=== PATIENT | female | born 1975 | race Caucasian/White ===

== ENCOUNTER 2017-02-09 11:45 | Outpatient (RCR) | payer OTHER | END 2017-02-11 | LOC: M OT 11:45 | PROVIDERS: ATTEND Physician Assistant | DX: Z51.89 Encounter for other specified aftercare (principal); G56.01 Carpal tunnel syndrome, right upper limb ==

== ENCOUNTER 2017-03-02 11:45 | Outpatient (RCR) | payer OTHER | END 2017-03-13 | LOC: M OT 11:45 | PROVIDERS: ATTEND Physician Assistant | DX: Z51.89 Encounter for other specified aftercare (principal); G56.01 Carpal tunnel syndrome, right upper limb ==

== ENCOUNTER → 2017-05-19 | Outpatient (REF) | payer OTHER ==
[~2017-05-19] MED LIST: NAPR500T PO
== END ==
LOC: M SFHCPLAZ 12:47
PROVIDERS: ATTEND Nurse Practitioner Adult Health
DX: J06.0 Acute laryngopharyngitis (principal)

== ENCOUNTER 2017-06-23 06:04 | Emergency (ER) | payer OTHER ==
[~2017-06-23] VITALS: Ht 154.9 cm; Wt 81.4 kg
[2017-06-23] MEDS ORDERED: KETOROLAC 30 MG/ML VIAL (J1885) IV ONE (06:30)
[2017-06-23 07:16] LABS: BASO % 0.5 % (0.0-1.0); EOS # 0.2 K/mm3 (0.0-0.50); EOS % 1.8 % (0.0-3.0); LARGE UNSTAINED CELL # 0.1 K/mm3 (0.0-0.4); LARGE UNSTAINED CELL % 1.2 % (0.0-4.0); LYMPH # 1.4 K/mm3 (1.5-4.5); LYMPH % 12.5 % (24.0-44.0); MEAN CORPUSCULAR HEMOGLOBIN 29.2 pg (27.0-33.0); MEAN CORPUSCULAR VOLUME 88.4 fl (80.0-96.0); MONO # 0.5 K/mm3 (0.0-0.8); MONO % 5.1 % (0.0-5.0); NEUTROPHILS # 7.9 K/mm3 (1.8-7.7); NEUTROPHILS % 78.9 % (36.0-66.0); PLATELET COUNT, AUTOMATED 259 k/mm3 (150-450); RED CELL DISTRIBUTION WIDTH 13.6 % (11.5-14.5)
[2017-06-23 07:34] LABS: ALBUMIN 3.6 GM/DL (3.2-5.2); ALBUMIN/GLOBULIN RATIO 1.13 (1.00-1.93); ALKALINE PHOSPHATASE 88 U/L (45-117); ALT/SGPT 18 U/L (12-78); AMYLASE 27 U/L (25-115); ANION GAP 10 MEQ/L (8-16); AST/SGOT 10 U/L (15-37); BILIRUBIN,TOTAL 0.8 MG/DL (0.2-1.0); BLOOD UREA NITROGEN 9 MG/DL (7-18); CALCIUM LEVEL 8.9 MG/DL (8.5-10.1); CARBON DIOXIDE LEVEL 23 MEQ/L (21-32); CHLORIDE LEVEL 107 MEQ/L (98-107); CREATININE FOR GFR 0.78 MG/DL (0.55-1.02); GLOMERULAR FILTRATION RATE > 60.0 (>58); GLUCOSE, FASTING 104 MG/DL (70-105); POTASSIUM SERUM 4.1 MEQ/L (3.5-5.1); SODIUM LEVEL 140 MEQ/L (136-145); TOTAL PROTEIN 6.8 GM/DL (6.4-8.2)
[2017-06-23] MEDS ORDERED: NAPR500T PO (08:20)
[2017-06-23 08:27] VITALS: BP 117/72
--- NOTE | 2017-06-23 09:44 | REP ---
PA and lateral chest: Comparison is 09/13/2009. The lung granados are clear. The cardiac size is normal The luke, mediastinum, and bony thorax are unremarkable. Impression: Negative PA and lateral chest. There is no interval change of the Signed by Kvng Ames MD 06/23/2017 08:11 A
--- NOTE | 2017-06-23 09:44 | REP ---
Thoracic spine two views: Comparison is a PA and lateral chest of 09/13/2009. Vertebral body heights, interspacing alignment are normal and unchanged. Mineralization is normal. There is scoliosis convex left in the upper thoracic spine and right in the mid thoracic spine. This is unchanged. The pedicles are unremarkable. Surgical clips are incidentally noted in the abdominal right upper quadrant. Impression: Scoliosis, otherwise negative thoracic spine. Signed by Kvng Ames MD 06/23/2017 08:12 A
== END 2017-06-23 08:51 | disposition home or self-care (01) ==
LOC: M ED 06:04
DX: R10.13 Epigastric pain (principal); M54.9 Dorsalgia, unspecified
CPT/HCPCS: 36415; 71020; 72072; 80053; 81001; 82150; 83690; 85025; 96374; 99284; J1885

== ENCOUNTER → 2017-10-03 | Outpatient (CLI) | payer OTHER ==
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
== END ==
LOC: M PAIN 14:00
PROVIDERS: ATTEND Anesthesiology
DX: G89.21 Chronic pain due to trauma (principal); M25.562 Pain in left knee; M94.20 Chondromalacia, unspecified site; Z79.1 Long term (current) use of non-steroidal anti-inflammatories (NSAID); Z79.899 Other long term (current) drug therapy

== ENCOUNTER → 2017-11-17 | Outpatient (CLI) | payer OTHER | LOC: M PAIN 15:00 | DX: M25.562 Pain in left knee (principal); G89.29 Other chronic pain; M79.2 Neuralgia and neuritis, unspecified | CPT/HCPCS: G0463 ==

== ENCOUNTER → 2017-11-25 | Outpatient (CLI) | payer OTHER | LOC: M RAD 10:53 | DX: Z12.31 Encounter for screening mammogram for malignant neoplasm of breast (principal) | CPT/HCPCS: 77067 ==

== ENCOUNTER → 2018-01-14 | Outpatient (REF) | payer OTHER ==
[2018-01-14 16:26] LABS: APPEARANCE, URINE HAZY (CLEAR); BACTERIA, URINE AUTO NEGATIVE (NEGATIVE); BILIRUBIN, URINE AUTO NEGATIVE (NEGATIVE); BLOOD, URINE BLOOD 1+ (NEGATIVE); COLOR, URINE YELLOW (YELLOW); GLUCOSE, URINE (UA) AUTO NEGATIVE (NEGATIVE); KETONE, URINE AUTO NEGATIVE (NEGATIVE); LEUKOCYTE ESTERASE, URINE AUTO NEGATIVE (NEGATIVE); NITRITE, URINE AUTO NEGATIVE (NEGATIVE); PROTEIN, URINE AUTO NEGATIVE (NEGATIVE); RBC, URINE AUTO 4 /HPF (0-3); SPECIFIC GRAVITY URINE AUTO 1.017 (1.002-1.035); SQUAMOUS EPITHELIAL CELL UR AU 2 /HPF (0-6); UROBILINOGEN, URINE AUTO 0.2 mg/dL (0.0-2.0); WBC, URINE AUTO 2 /HPF (0-3)
== END ==
LOC: M LAB REF 10:47
DX: N39.0 Urinary tract infection, site not specified (principal)
CPT/HCPCS: 81001

== ENCOUNTER → 2018-01-17 | Outpatient (CLI) | payer OTHER | LOC: M PAIN 13:45 | DX: M25.562 Pain in left knee (principal); G89.29 Other chronic pain; M79.2 Neuralgia and neuritis, unspecified | CPT/HCPCS: G0463 ==

== ENCOUNTER 2018-03-31 23:15 | Emergency (ER) | payer OTHER ==
[2018-04-01] MEDS: EXPOSURE KIT-ADULT 7 DAY SUPPLY PO (04:45)
[2018-04-01 04:49] LABS: BASO # 0.1 10^3/uL (0.0-0.2); BASO % 0.7 % (0.0-1.0); EOS # 0.1 10^3/uL (0.0-0.50); EOS % 1.3 % (0.0-3.0); HEMATOCRIT 37.2 % (36.0-47.0); HEMOGLOBIN 12.2 g/dl (12.0-15.5); IMMATURE GRANULOCYTE % 0.2 % (0-3.0); LYMPH % 34.3 % (24.0-44.0); MEAN CORPUSCULAR HEMOGLOBIN 29.1 pg (27.0-33.0); MEAN CORPUSCULAR HGB CONC 32.8 g/dl (32.0-36.5); MEAN CORPUSCULAR VOLUME 88.8 fl (80.0-96.0); MONO # 0.6 10^3/uL (0.0-0.8); MONO % 6.6 % (0.0-5.0); NEUTROPHILS % 56.9 % (36.0-66.0); PLATELET COUNT, AUTOMATED 241 10^3/uL (150-450); RED BLOOD COUNT 4.19 10^6/uL (4.00-5.40); RED CELL DISTRIBUTION WIDTH 13.2 % (11.5-14.5); WHITE BLOOD COUNT 8.8 10^3/uL (4.0-10.0)
[2018-04-01] MEDS: ADACEL/BOOSTRIX VACCINE (DIPHTH/PERTUSS/ACELL/TETANUS)0.5ML SYR (90715) IM (04:53)
[2018-04-01] MEDS: cefTRIAXone SOD 250 MG VIAL (J0696) IM (05:15)
[2018-04-01] MEDS: AZITHROMYCIN 250 MG TAB PO (05:19)
[2018-04-01 05:21] LABS: CONTROL LINE HCG INT CTR LINE PRESENT; HCG, SERUM QUALITATIVE NEGATIVE (NEGATIVE)
[2018-04-01] MEDS: [UNRECOGNIZED DRUG - OTHER] IM (05:27)
[2018-04-01 05:30] LABS: ALBUMIN 3.4 GM/DL (3.2-5.2); ALBUMIN/GLOBULIN RATIO 1.17 (1.00-1.93); ALKALINE PHOSPHATASE 74 U/L (45-117); ALT/SGPT 20 U/L (12-78); ANION GAP 5 MEQ/L (8-16); AST/SGOT 13 U/L (7-37); BILIRUBIN,TOTAL 0.5 MG/DL (0.2-1.0); BLOOD UREA NITROGEN 11 MG/DL (7-18); CALCIUM LEVEL 8.4 MG/DL (8.5-10.1); CARBON DIOXIDE LEVEL 28 MEQ/L (21-32); CHLORIDE LEVEL 110 MEQ/L (98-107); CREATININE FOR GFR 0.76 MG/DL (0.55-1.30); GLOMERULAR FILTRATION RATE > 60.0 (>58); GLUCOSE, FASTING 103 MG/DL (70-100); POTASSIUM SERUM 3.6 MEQ/L (3.5-5.1); SODIUM LEVEL 143 MEQ/L (136-145); TOTAL PROTEIN 6.3 GM/DL (6.4-8.2)
[2018-04-01 05:48] LABS: HIVEXPOSED0 NEGATIVE (NEGATIVE)
[2018-04-01 05:49] LABS: CONTROL LINE INT CTR LINE PRESENT; HIV EXPOSED PT 1 NEGATIVE (NEGATIVE)
[2018-04-03 09:43] LABS: HEPATITIS B SURFACE ANTIBODY NEGATIVE (POSITIVE)
[2018-04-03 09:55] LABS: HEPATITIS B SURFACE ANTIGEN NEGATIVE (NEGATIVE)
[2018-04-03 10:22] LABS: HEPATITIS C VIRUS ABY INDEX < 0.0 INDEX (<0.8)
== END 2018-04-01 05:31 | disposition home or self-care (01) ==
LOC: M ED 04-01 05:31
DX: S61.002A Unspecified open wound of left thumb without damage to nail, initial encounter (principal); Z57.8 Occupational exposure to other risk factors; X58.XXXA Exposure to other specified factors, initial encounter; Y92.9 Unspecified place or not applicable; Y93.89 Activity, other specified; Y99.0 Civilian activity done for income or pay
CPT/HCPCS: 90715

== ENCOUNTER → 2018-04-13 | Outpatient (CLI) | payer OTHER | LOC: M PAIN 10:00 | DX: M25.562 Pain in left knee (principal); G89.29 Other chronic pain; M79.2 Neuralgia and neuritis, unspecified; Z79.899 Other long term (current) drug therapy | CPT/HCPCS: G0463 ==

== ENCOUNTER 2018-05-11 11:14 | Outpatient (RCR) | payer OTHER | END 2018-05-13 | LOC: M PT 11:14 | DX: Z51.89 Encounter for other specified aftercare (principal); M25.562 Pain in left knee; G89.29 Other chronic pain ==

== ENCOUNTER → 2018-08-07 | Outpatient (CLI) | payer OTHER ==
[2018-08-07 14:34] LABS: HEPATITIS B SURFACE ANTIBODY NEGATIVE (POSITIVE); HEPATITIS B SURFACE ANTIGEN NEGATIVE (NEGATIVE); HIV 1&2 SCREEN CENTAUR NEGATIVE (NEGATIVE)
[2018-08-07 14:34] LABS: HEPATITIS C VIRUS ABY INDEX 0.1 INDEX (<0.8)
== END ==
LOC: M RAD 11:30
DX: M70.72 Other bursitis of hip, left hip (principal)
CPT/HCPCS: 73502

== ENCOUNTER → 2018-08-07 | Outpatient (CLI) | payer OTHER | LOC: M LAB 11:40 | DX: Z11.59 Encounter for screening for other viral diseases (principal); W46.1XXA Contact with contaminated hypodermic needle, initial encounter ==

== ENCOUNTER 2018-11-20 22:59 | Emergency (ER) | payer OTHER ==
[~2018-11-20] VITALS: Ht 154.9 cm; Wt 63.6 kg
[~2018-11-20 22:59] MED LIST changes: +NAPR-50 PO; -NAPR500T PO
[2018-11-21] MEDS ORDERED: KETOROLAC TROMETHAMINE 10 MG TAB PO ONE
[2018-11-21] MEDS ORDERED: MOBI4TAB PO (00:02)
[2018-11-21 00:18] VITALS: BP 121/73
--- NOTE | 2018-11-21 02:19 | REP ---
Clinical: Trauma. Crush injury Technique: AP, lateral, bilateral oblique views left hand . Findings: The osseous structures and joint spaces are intact and normal. There is no evidence for acute fracture or dislocation. Surrounding soft tissues are unremarkable. No subcutaneous emphysema or radiodense foreign body. Impression: No obvious acute fracture or dislocation. Electronically Signed by Rolf Cleveland MD 11/21/2018 02:11 A
== END 2018-11-21 00:17 | disposition home or self-care (01) ==
LOC: M ED 22:59
DX: S67.22XA Crushing injury of left hand, initial encounter (principal); W23.1XXA Caught, crushed, jammed, or pinched between stationary objects, initial encounter; Y92.009 Unspecified place in unspecified non-institutional (private) residence as the place of occurrence of the external cause

== ENCOUNTER → 2018-12-05 | Outpatient (CLI) | payer OTHER ==
[~2018-12-05] MED LIST changes: +MOBI4TAB PO
--- NOTE | 2018-12-05 14:48 | REPMRS ---
Patient History The patient states she had a clinical breast exam in November 2018. No known family history of cancer. Digital Mammo Screening Bilat: December 05, 2018 - Exam #: [id number] Bilateral CC and MLO view(s) were taken. Technologist: Tiffanie Heath, Technologist Prior study comparison: November 25, 2017, bilateral digital mammo screening bilat performed at [facility]. November 24, 2015, bilateral digital mammo screening bilat performed at [facility]. FINDINGS: There are scattered fibroglandular densities. There has been no change in the appearance of the mammogram from the prior studies. There is a mild amount of scattered fibroglandular density which is fairly symmetric. There is no interval development of dominant mass, architectural distortion, or clustered microcalcification suggestive of malignancy. 3-D tomosynthesis shows no additional findings. Assessment: BI-RADS/ACR category 1 mammogram. Negative Mammogram. Recommendation Routine screening mammogram of both breasts in 1 year (for women over age 40). This patient's Lifetime Breast Cancer RIsk is estimated at 9.5 %. This mammogram was interpreted with the aid of an FDA-approved computer-aided dectection system. Electronically Signed By: Myron Saravia MD 12/05/18 [id number]
== END ==
LOC: M RAD 10:33
PROVIDERS: ATTEND Nurse Practitioner Family
DX: Z12.31 Encounter for screening mammogram for malignant neoplasm of breast (principal)

== ENCOUNTER 2019-02-02 12:14 | Emergency (ER) | payer OTHER ==
[~2019-02-02] VITALS: Ht 154.9 cm; Wt 72.7 kg
[2019-02-02] MEDS ORDERED: ONDANSETRON 4MG/2ML VIAL (J2405) IV ONE (13:15)
[2019-02-02] MEDS ORDERED: NS 1,000 ML IV ONE (13:15)
[2019-02-02 13:45] LABS: BASO # 0.1 10^3/uL (0.0-0.2); BASO % 1.2 % (0.0-1.0); EOS % 0.1 % (0.0-3.0); HEMATOCRIT 41.7 % (36.0-47.0); HEMOGLOBIN 14.1 g/dl (12.0-15.5); LYMPH # 1.2 10^3/uL (1.5-4.5); LYMPH % 15.5 % (24.0-44.0); MEAN CORPUSCULAR HEMOGLOBIN 30.7 pg (27.0-33.0); MEAN CORPUSCULAR HGB CONC 33.8 g/dl (32.0-36.5); MEAN CORPUSCULAR VOLUME 90.7 fl (80.0-96.0); MONO # 0.4 10^3/uL (0.0-0.8); MONO % 4.8 % (0.0-5.0); NEUTROPHILS % 77.8 % (36.0-66.0); PLATELET COUNT, AUTOMATED 281 10^3/uL (150-450); WHITE BLOOD COUNT 7.8 10^3/uL (4.0-10.0)
[2019-02-02 14:22] LABS: ALT/SGPT 30 U/L (12-78); AMYLASE 44 U/L (25-115); BILIRUBIN,DIRECT 0.2 MG/DL (0.0-0.2); BILIRUBIN,TOTAL 0.9 MG/DL (0.2-1.0); BLOOD UREA NITROGEN 13 MG/DL (7-18); CALCIUM LEVEL 9.2 MG/DL (8.5-10.1); CARBON DIOXIDE LEVEL 26 MEQ/L (21-32); CHLORIDE LEVEL 105 MEQ/L (98-107); CREATININE FOR GFR 0.68 MG/DL (0.55-1.30); GLOMERULAR FILTRATION RATE > 60.0 (>58); GLUCOSE, FASTING 94 MG/DL (70-100); LIPASE 83 U/L (73-393); POTASSIUM SERUM 4.5 MEQ/L (3.5-5.1); SODIUM LEVEL 141 MEQ/L (136-145); TOTAL PROTEIN 7.4 GM/DL (6.4-8.2)
[2019-02-02 14:35] VITALS: BP 137/72
== END 2019-02-02 14:52 | disposition home or self-care (01) ==
LOC: M ED 12:14
DX: R11.2 Nausea with vomiting, unspecified (principal); Z79.899 Other long term (current) drug therapy
CPT/HCPCS: 80048; 80076; 81001; 81025; 82150; 83690; 85025; 96361; 96374; 99284; J2405

== ENCOUNTER 2019-02-06 08:28 | Emergency (ER) | payer OTHER ==
[~2019-02-06] VITALS: Ht 154.9 cm; Wt 68.7 kg
[~2019-02-06 08:28] MED LIST changes: -NAPR-50 PO; +NAPR-837 PO
[2019-02-06] MEDS ORDERED: gabapentin (08:40)
[2019-02-06] MEDS ORDERED: TIZA2TA (08:41)
--- NOTE | 2019-02-06 09:28 | REP ---
LEFT SHOULDER, THREE VIEWS: There is no evidence of an acute fracture, dislocation or intrinsic bone disease. IMPRESSION: No fracture or dislocation. Electronically Signed by Kvng Olivas MD 02/07/2019 10:02 A
[2019-02-06] MEDS ORDERED: KETOROLAC 60 MG/2 ML VIAL (J1885) IM ONE (10:15)
[2019-02-06] MEDS ORDERED: MOBI15TA PO (11:20)
[2019-02-06] MEDS ORDERED: LIDO4CRE2 EX (11:20)
[2019-02-06] MEDS ORDERED: ROBA500T PO (11:20)
[2019-02-06 11:27] VITALS: BP 141/91
--- NOTE | 2019-02-06 11:30 | REP ---
CERVICAL SPINE SERIES: Seven views. HISTORY: Left neck pain and numbness in the arm. FINDINGS: There is reversal of the normal cervical lordosis. Lateral views done in flexion and extension and neutral position show no subluxation or instability. Vertebral body heights are preserved. There is degenerative disc narrowing at C5-6 and to a lesser extent C6-7 indicating degenerative disc disease. There is sclerosis and osteophyte formation associated with the 5-6 changes. AP view shows a mild dextroconvex curve in the cervical spine. Oblique images show right-sided uncovertebral spurring at C5-6. Minimal spurring is noted on the left at C5-6. IMPRESSION: Degenerative disc disease most pronounced at C5-6 where there is mild bilateral uncovertebral spurring, right greater than left. Electronically Signed by Иван Saravia MD 02/06/2019 11:33 A
== END 2019-02-06 11:29 | disposition home or self-care (01) ==
LOC: M ED 08:28
DX: M50.322 Other cervical disc degeneration at C5-C6 level (principal); M62.838 Other muscle spasm; Z79.899 Other long term (current) drug therapy
CPT/HCPCS: 72052; 73030; 96372; 99283; J1885

== ENCOUNTER → 2019-03-20 | Outpatient (REF) | payer OTHER ==
[~2019-03-20] MED LIST changes: +LIDO4CRE2 EX; +MOBI15TA PO; +ROBA500T PO; +TIZA2TA; +gabapentin
[2019-03-20 12:30] LABS: ALBUMIN 3.9 GM/DL (3.2-5.2); ALT/SGPT 17 U/L (12-78); BLOOD UREA NITROGEN 11 MG/DL (7-18); CALCIUM LEVEL 8.5 MG/DL (8.5-10.1); CARBON DIOXIDE LEVEL 28 MEQ/L (21-32); CHLORIDE LEVEL 107 MEQ/L (98-107); CHOLESTEROL LEVEL 145 MG/DL (<200); CHOLESTEROL RISK RATIO 2.265 (<5); GLOMERULAR FILTRATION RATE > 60.0 (>58); GLUCOSE, FASTING 93 MG/DL (70-100); HDL CHOLESTEROL 64 MG/DL (>40); LDL CHOLESTEROL 68 MG/DL (<100); NON-HDL-C 81 MG/DL; POTASSIUM SERUM 3.9 MEQ/L (3.5-5.1); SODIUM LEVEL 140 MEQ/L (136-145); TOTAL PROTEIN 6.6 GM/DL (6.4-8.2); TRIGLYCERIDES LEVEL 64 MG/DL (<150)
== END ==
LOC: M SFHCPLAZ 09:55
PROVIDERS: ATTEND Nurse Practitioner Adult Health
DX: Z00.00 Encounter for general adult medical examination without abnormal findings (principal)

== ENCOUNTER → 2019-05-04 | Outpatient (CLI) | payer OTHER ==
--- NOTE | 2019-05-04 17:41 | REP ---
Left hand four views: Mineralization and joint spaces are normal. There is no fracture or dislocation. There are no calcifications or foreign bodies. On the lateral view there appears to be soft tissue edema along the dorsal aspect of the MCP articulations. This should be confirmed clinically. Impression: Probable soft tissue edema as described. Otherwise, negative left hand. Electronically Signed by Kvng Ames MD 05/04/2019 05:32 P
== END ==
LOC: M WUC 15:06
PROVIDERS: ATTEND Physician Assistant
DX: M79.642 Pain in left hand (principal)

== ENCOUNTER 2019-06-16 14:44 | Emergency (ER) | payer OTHER, SELFPAY ==
[~2019-06-16] VITALS: Ht 154.9 cm; Wt 68.2 kg
[~2019-06-16 14:44] MED LIST changes: -TIZA2TA; +TIZA2TA PO; -gabapentin; +gabapentin PO
--- NOTE | 2019-06-16 15:28 | REP ---
Clinical: Trauma. Technique: AP, lateral, bilateral oblique views left hand . Findings: The osseous structures and joint spaces are intact and normal. There is no evidence for acute fracture or dislocation. Surrounding soft tissues are unremarkable. No subcutaneous emphysema or radiodense foreign body. Impression: Normal left hand series . No acute fracture or dislocation. Electronically Signed by Rolf Cleveland MD 06/16/2019 03:20 P
[2019-06-16] MEDS ORDERED: LIDOCAINE 2% MDV 20 ML VIAL SC ONE (15:45)
[2019-06-16] MEDS ORDERED: NEOSPORIN OINT 0.9 GM PKT (FLOOR STOCK) As Ordered ONE (16:02)
[2019-06-16] MEDS ORDERED: NEOSPORIN OINT 0.9 GM PKT (FLOOR STOCK) TOP ONE (16:15)
[2019-06-16 16:17] VITALS: BP 121/70
== END 2019-06-16 16:21 | disposition home or self-care (01) ==
LOC: M ED 14:44
DX: S61.412A Laceration without foreign body of left hand, initial encounter (principal); W22.8XXA Striking against or struck by other objects, initial encounter; Y92.89 Other specified places as the place of occurrence of the external cause; Y93.9 Activity, unspecified; Y99.0 Civilian activity done for income or pay; G56.00 Carpal tunnel syndrome, unspecified upper limb; K80.20 Calculus of gallbladder without cholecystitis without obstruction; Z79.899 Other long term (current) drug therapy

== ENCOUNTER 2019-06-20 11:10 | Emergency (ER) | payer OTHER ==
[~2019-06-20] VITALS: Ht 154.9 cm; Wt 71.0 kg
[~2019-06-20 11:10] MED LIST changes: +TIZA2TA; -TIZA2TA PO; +gabapentin; -gabapentin PO
[2019-06-20 12:22] VITALS: BP 129/79
== END 2019-06-20 12:25 | disposition home or self-care (01) ==
LOC: M ED 11:10
DX: Z48.02 Encounter for removal of sutures (principal)

== ENCOUNTER 2019-11-08 08:07 | Emergency (ER) | payer OTHER, SELFPAY ==
[~2019-11-08] VITALS: Ht 154.9 cm; Wt 70.0 kg
[~2019-11-08 08:07] MED LIST changes: -TIZA2TA; +TIZA2TA PO; -gabapentin; +gabapentin PO
[2019-11-08] MEDS ORDERED: NS 1,000 ML IV ONE (09:15)
[2019-11-08] MEDS ORDERED: ONDANSETRON 4MG/2ML VIAL (J2405) IV ONE (09:15)
[2019-11-08] MEDS ORDERED: ONDA4TAB6 PO (12:01)
[2019-11-08 12:13] VITALS: BP 125/67
== END 2019-11-08 12:14 | disposition home or self-care (01) ==
LOC: M ED 08:07
DX: A08.11 Acute gastroenteropathy due to Norwalk agent (principal); E66.9 Obesity, unspecified; F17.200 Nicotine dependence, unspecified, uncomplicated; Z79.899 Other long term (current) drug therapy; Z98.890 Other specified postprocedural states; Z90.89 Acquired absence of other organs
CPT/HCPCS: 80047; 87507; 96374; 99284; J2405

== ENCOUNTER 2020-05-24 12:39 | Emergency (ER) | payer OTHER, SELFPAY ==
[~2020-05-24] VITALS: Ht 154.9 cm; Wt 71.6 kg
[~2020-05-24 12:39] MED LIST changes: +ONDA4TAB6 PO
[2020-05-24] MEDS ORDERED: ACETAMINOPHEN 500 MG TAB PO ONE (13:15)
[2020-05-24 14:37] VITALS: BP 122/78
--- NOTE | 2020-05-25 09:45 | REP ---
RIGHT ANKLE COMPLETE: 05/24/2020. CLINICAL HISTORY: Rolled ankle, swelling and pain. FINDINGS: The mortise joint was symmetric and preserved with no talar dome osteochondral defect or focal lesion. The distal tibia and fibula without fracture or focal lesion. Prominent soft tissue swelling anterolateral aspect of the ankle without visible avulsion or fracture line. Subtalar joints are intact. No calcaneal spurs noted. Talonavicular and calcaneocuboid joint are normal and without focal lesion in the hindfoot. Visualized portions of tarsal bones and metatarsals included are unremarkable. IMPRESSION: 1. Prominent soft tissue swelling anterolateral aspect of the ankle without visible fracture, avulsion, disruption of the mortise joint, or other acute finding. Electronically Signed by Jose Rafael Quiroz MD 05/25/2020 06:34 P
== END 2020-05-24 14:38 | disposition home or self-care (01) ==
LOC: M ED 12:39
DX: S93.401A Sprain of unspecified ligament of right ankle, initial encounter (principal); W18.49XA Other slipping, tripping and stumbling without falling, initial encounter; Y92.9 Unspecified place or not applicable; Y93.9 Activity, unspecified; Y99.9 Unspecified external cause status

== ENCOUNTER → 2020-06-02 | Outpatient (CLI) | payer OTHER ==
--- NOTE | 2020-06-02 14:01 | REPPI ---
Clinical: Pain. Technique: AP, lateral, bilateral oblique views of the right ankle. Findings: Lateral swelling consist with inversion injury. No acute fracture or dislocation. Ankle mortise appears intact. Impression: Soft-tissue swelling. No acute fracture or dislocation. Electronically Signed by Rolf Cleveland MD 06/02/2020 12:02 P
== END ==
LOC: M PLAIMG 11:26
PROVIDERS: ATTEND Family Medicine
DX: M25.571 Pain in right ankle and joints of right foot (principal)

== ENCOUNTER 2021-05-06 11:51 | Emergency (ER) | payer OTHER ==
[~2021-05-06] VITALS: Ht 154.9 cm; Wt 78.2 kg
[2021-05-06 14:10] LABS: BASO # 0.1 10^3/uL (0.0-0.2); BASO % 0.8 % (0.0-1.0); EOS % 0.5 % (0.0-3.0); HEMATOCRIT 43.6 % (36.0-47.0); HEMOGLOBIN 14.4 g/dl (12.0-15.5); LYMPH # 1.5 10^3/uL (1.5-5.0); LYMPH % 17.4 % (24.0-44.0); MEAN CORPUSCULAR HEMOGLOBIN 29.4 pg (27.0-33.0); MEAN CORPUSCULAR VOLUME 89.2 fl (80.0-96.0); MONO # 0.4 10^3/uL (0.0-0.8); MONO % 4.6 % (2.0-8.0); NEUTROPHILS # 6.4 10^3/uL (1.5-8.5); NEUTROPHILS % 76.3 % (36.0-66.0); PLATELET COUNT, AUTOMATED 299 10^3/uL (150-450); RED BLOOD COUNT 4.89 10^6/uL (4.00-5.40); WHITE BLOOD COUNT 8.4 10^3/uL (4.0-10.0)
[2021-05-06 14:35] LABS: ALBUMIN 3.9 GM/DL (3.2-5.2); BILIRUBIN,DIRECT 0.2 MG/DL (0.0-0.2); BILIRUBIN,TOTAL 0.9 MG/DL (0.2-1.0); TOTAL PROTEIN 7.4 GM/DL (6.4-8.2)
--- NOTE | 2021-05-06 15:29 | REP ---
INDICATION: lower abd pain. COMPARISON: None. TECHNIQUE: Single view abdomen and pelvis. FINDINGS: The bowel gas pattern is normal. There is no radiographic evidence of small bowel obstruction. Multiple metallic clips are seen in the right abdomen. Calcific densities on both sides of the pelvis probably represent phleboliths. IMPRESSION: Unremarkable KUB. <Electronically signed by Kvng Olivas > 05/06/21 0499
[2021-05-06] MEDS ORDERED: KETOROLAC 30 MG/ML 1ML VIAL IV ONE (16:20)
[2021-05-06] MEDS ORDERED: ISOVUE-370 76% 100ML VIAL As Ordered ONE (16:45)
--- NOTE | 2021-05-06 17:04 | REP ---
INDICATION: lower abd TTP. COMPARISON: 12/20/2014 and noncontrast enhanced exam TECHNIQUE: Standard helical technique after the intravenous administration of 100 cc Isovue 370. No oral bowel preparatory contrast was administered prior to the exam. FINDINGS: The lung bases are clear and unchanged The liver, spleen, pancreas, adrenal glands, and kidneys are within normal limits. The abdominal aorta and para-aortic regions are within normal limits. There is no mass or adenopathy. There is no free fluid or free air. Surgical clips are seen in the right lower quadrant from previous appendectomy. There is a short segment of wall thickened sigmoid colon with multiple diverticula in the region. There is no free pelvic fluid or air. Bone window technique throughout the examination shows the osseous structures to be stable and intact. IMPRESSION: Mild sigmoid colon diverticulitis. <Electronically signed by Cuco Elliott > 05/06/21 [id number]
[2021-05-06 17:30] VITALS: BP 133/68
[2021-05-06] MEDS ORDERED: CIPR-249 PO (17:40)
[2021-05-06] MEDS ORDERED: FLAG500T PO (17:40)
[2021-05-07] MEDS ORDERED: PROM25TA12 PO (11:28)
== END 2021-05-06 17:52 | disposition home or self-care (01) ==
LOC: M ED 11:51
DX: K57.32 Diverticulitis of large intestine without perforation or abscess without bleeding (principal); Z87.19 Personal history of other diseases of the digestive system; Z87.440 Personal history of urinary (tract) infections; Z90.49 Acquired absence of other specified parts of digestive tract; Z98.890 Other specified postprocedural states
CPT/HCPCS: 74018; 74177; 80047; 80076; 81001; 83690; 84702; 85025; 96374; 99284; J1885; Q9967

== ENCOUNTER 2021-05-07 06:38 | Emergency (ER) | payer OTHER ==
[~2021-05-07] VITALS: Ht 154.9 cm; Wt 77.5 kg
[~2021-05-07 06:38] MED LIST changes: +CIPR-249 PO; +FLAG500T PO
[2021-05-07] MEDS ORDERED: NS 1,000 ML IV ONE (07:30)
[2021-05-07] MEDS ORDERED: ONDANSETRON 4MG/2ML VIAL IV ONE (07:30)
[2021-05-07 08:14] LABS: BASO # 0.1 10^3/uL (0.0-0.2); BASO % 0.6 % (0.0-1.0); EOS % 0.4 % (0.0-3.0); HEMATOCRIT 46.3 % (36.0-47.0); HEMOGLOBIN 15.3 g/dl (12.0-15.5); LYMPH # 0.9 10^3/uL (1.5-5.0); LYMPH % 10.6 % (24.0-44.0); MEAN CORPUSCULAR HEMOGLOBIN 29.2 pg (27.0-33.0); MEAN CORPUSCULAR VOLUME 88.4 fl (80.0-96.0); MONO # 0.3 10^3/uL (0.0-0.8); MONO % 3.8 % (2.0-8.0); NEUTROPHILS % 84.4 % (36.0-66.0); PLATELET COUNT, AUTOMATED 314 10^3/uL (150-450); RED BLOOD COUNT 5.24 10^6/uL (4.00-5.40); WHITE BLOOD COUNT 8.2 10^3/uL (4.0-10.0)
[2021-05-07 08:18] LABS: BLOOD UREA NITROGEN 13 MG/DL (7-18); CALCIUM LEVEL 9.7 MG/DL (8.5-10.1); CARBON DIOXIDE LEVEL 27 MEQ/L (21-32); CHLORIDE LEVEL 104 MEQ/L (98-107); CREATININE FOR GFR 0.86 MG/DL (0.55-1.30); GLOMERULAR FILTRATION RATE > 60.0 (>58); GLUCOSE, FASTING 127 MG/DL (70-100); POTASSIUM SERUM 3.7 MEQ/L (3.5-5.1); SODIUM LEVEL 138 MEQ/L (136-145)
[2021-05-07 10:25] VITALS: BP 143/83
[2021-05-07] MEDS ORDERED: PROM25TA12 PO (11:28)
== END 2021-05-07 11:40 | disposition home or self-care (01) ==
LOC: M ED 06:38
DX: K57.92 Diverticulitis of intestine, part unspecified, without perforation or abscess without bleeding (principal)
CPT/HCPCS: 36415; 80048; 85025; 96361; 96374; 99284; J2405

== ENCOUNTER → 2021-05-11 | Outpatient (REF) | payer OTHER ==
[~2021-05-11] MED LIST changes: +PROM25TA12 PO
[2021-05-11 13:35] LABS: APPEARANCE, URINE HAZY (CLEAR); BACTERIA, URINE AUTO 1+ (NEGATIVE); BILIRUBIN, URINE AUTO NEGATIVE (NEGATIVE); BLOOD, URINE BLOOD 1+ (NEGATIVE); CALCIUM OXALATE CRYSTALS SMALL; COLOR, URINE YELLOW (YELLOW); GLUCOSE, URINE (UA) AUTO NEGATIVE (NEGATIVE); KETONE, URINE AUTO NEGATIVE (NEGATIVE); LEUKOCYTE ESTERASE, URINE AUTO NEGATIVE (NEGATIVE); MUCUS, URINE SMALL (NEGATIVE); NITRITE, URINE AUTO NEGATIVE (NEGATIVE); PROTEIN, URINE AUTO NEGATIVE (NEGATIVE); RBC, URINE AUTO 2 /HPF (0-3); SPECIFIC GRAVITY URINE AUTO 1.029 (1.002-1.035); SQUAMOUS EPITHELIAL CELL UR AU 15 /HPF (0-6); UROBILINOGEN, URINE AUTO 0.2 mg/dL (0.0-2.0); WBC, URINE AUTO 3 /HPF (0-3)
== END ==
LOC: M SFHCPLAZ 13:10
PROVIDERS: ATTEND Physician Assistant
DX: R31.9 Hematuria, unspecified (principal)

== ENCOUNTER → 2021-06-24 | Outpatient (CLI) | payer OTHER ==
--- NOTE | 2021-06-24 15:42 | REP ---
INDICATION: M25.512 ACUTE PAIN OF LEFT SHOULDER. COMPARISON: 02/06/2019 TECHNIQUE: Three views FINDINGS: No fracture, dislocation or bone test abnormality. No interval change. The previous study. IMPRESSION: Negative exam <Electronically signed by Juan Wolf > 06/24/21 153
== END ==
LOC: M WUC 15:17
PROVIDERS: ATTEND Nurse Practitioner Adult Health
DX: M25.512 Pain in left shoulder (principal)

== ENCOUNTER 2021-07-03 05:46 | Emergency (ER) | payer OTHER ==
[~2021-07-03] VITALS: Ht 154.9 cm; Wt 74.3 kg
[2021-07-03] MEDS ORDERED: ONDANSETRON 4MG/2ML VIAL IV ONE (06:55)
[2021-07-03] MEDS ORDERED: NS 1,000 ML IV ONE (06:55)
[2021-07-03] MEDS ORDERED: KETOROLAC 30 MG/ML 1ML VIAL IV ONE (07:30)
[2021-07-03 07:31] LABS: BASO # 0.1 10^3/uL (0.0-0.2); BASO % 0.8 % (0.0-1.0); EOS # 0.1 10^3/uL (0.0-0.5); EOS % 0.8 % (0.0-3.0); HEMATOCRIT 42.5 % (36.0-47.0); HEMOGLOBIN 14.2 g/dl (12.0-15.5); LYMPH # 1.3 10^3/uL (1.5-5.0); LYMPH % 19.7 % (24.0-44.0); MEAN CORPUSCULAR HGB CONC 33.4 g/dl (32.0-36.5); MEAN CORPUSCULAR VOLUME 89.7 fl (80.0-96.0); MONO # 0.5 10^3/uL (0.0-0.8); MONO % 6.9 % (2.0-8.0); NEUTROPHILS # 4.7 10^3/uL (1.5-8.5); NEUTROPHILS % 71.5 % (36.0-66.0); PLATELET COUNT, AUTOMATED 280 10^3/uL (150-450); RED BLOOD COUNT 4.74 10^6/uL (4.00-5.40); WHITE BLOOD COUNT 6.6 10^3/uL (4.0-10.0)
[2021-07-03] MEDS ORDERED: ISOVUE-370 76% 100ML VIAL As Ordered ONE (07:37)
[2021-07-03 07:59] LABS: ALBUMIN 3.7 GM/DL (3.2-5.2); ALT/SGPT 17 U/L (12-78); BILIRUBIN,DIRECT 0.2 MG/DL (0.0-0.2); BILIRUBIN,TOTAL 1.1 MG/DL (0.2-1.0); CK-MB VALUE MASS < 1.0 NG/ML (<3.6); CPK CREATINE PHOSPHOKINASE 61 U/L (26-192); LIPASE 62 U/L (73-393); MB/CK RELATIVE INDEX 1.64 (< OR =4); TOTAL PROTEIN 7.7 GM/DL (6.4-8.2); TROPONIN I < 0.02 NG/ML (< 0.10)
--- NOTE | 2021-07-03 08:36 | REPVR ---
PROCEDURE INFORMATION: Exam: CT Abdomen And Pelvis With Contrast Exam date and time: 07/03/2021 7:30 AM Age: 46 years old Clinical indication: Abdominal pain; Additional info: HX of diverticulitis, worsening lower abd pain l>r TECHNIQUE: Imaging protocol: Computed tomography of the abdomen and pelvis with contrast. Radiation optimization: All CT scans at this facility use at least one of these dose optimization techniques: automated exposure control; mA and/or kV adjustment per patient size (includes targeted exams where dose is matched to clinical indication); or iterative reconstruction. Contrast material: ISOVUE 370; Contrast volume: 100 ml; Contrast route: INTRAVENOUS (IV); COMPARISON: CT ABD/PEL W/IV CONTRAST ONLY 05/06/2021 4:46 PM FINDINGS: Liver: Mild hepatomegaly. Gallbladder and bile ducts: Status post cholecystectomy. Pancreas: Normal. No ductal dilation. Spleen: Normal. No splenomegaly. Adrenal glands: Normal. No mass. Kidneys and ureters: Normal. No hydronephrosis. Stomach and bowel: Diverticulosis of colon. No evidence of acute diverticulitis. Nonspecific bowel wall thickening involving loops of small and large bowel likely reflecting under distension. Appendix: Status post appendectomy. Intraperitoneal space: Unremarkable. No free air. No significant fluid collection. Vasculature: Unremarkable. No abdominal aortic aneurysm. Lymph nodes: Unremarkable. No enlarged lymph nodes. Urinary bladder: Unremarkable as visualized. Reproductive: Involuting possibly hemorrhagic right ovarian corpus luteal cyst. Bones/joints: Mild multilevel degenerative and facet arthropathy. L5 pars interarticularis defect. Soft tissues: Unremarkable. IMPRESSION: Involuting possibly hemorrhagic right ovarian corpus luteal cyst. Diverticulosis of colon. No evidence of acute diverticulitis. Nonspecific bowel wall thickening involving loops of small and large bowel likely reflecting under distension. No hydronephrosis or nephrolithiasis bilaterally. Electronically signed by: Cory Echavarria On 07/03/2021 08:36:22 AM
[2021-07-03 10:26] VITALS: BP 141/78
--- NOTE | 2021-07-03 19:17 | ECGEPIP ---
[facility] - ED Test Date: 2021-07-03 Pat Name: ISAAC THOMPSON Department: Room: - Gender: Female Photographer Lithographic: PEGGY : 1975 Requested By: CÉSAR Fletcher Order Number: [id number] Reading MD: Sarah De Leon Measurements Intervals [place] Rate: 66 P: 0 DC: 164 QRS: 39 QRSD: 82 T: 24 QT: 390 QTc: 408 Interpretive Statements Normal sinus rhythm Nonspecific ST T wave changes No prior ECG for comparison Electronically Signed on 07-03-2021 19:17:49 EDT by Sarah De Leon
== END 2021-07-03 10:28 | disposition home or self-care (01) ==
LOC: M ED 05:46
DX: R10.9 Unspecified abdominal pain (principal); R19.7 Diarrhea, unspecified; B96.20 Unspecified Escherichia coli [E. coli] as the cause of diseases classified elsewhere; J30.2 Other seasonal allergic rhinitis
CPT/HCPCS: 36415; 74177; 80047; 80076; 82550; 82553; 83690; 85025; 87505; 93005; 93041; 96361; 96374; 96375; 99284; J1885; J2405; Q9967

== ENCOUNTER 2021-08-08 08:02 | Emergency (ER) | payer OTHER ==
[~2021-08-08] VITALS: Ht 154.9 cm; Wt 75.9 kg
[2021-08-08] MEDS ORDERED: NS 1,000 ML IV ONE (08:30)
[2021-08-08 09:05] LABS: BASO # 0.1 10^3/uL (0.0-0.2); EOS # 0.1 10^3/uL (0.0-0.5); HEMATOCRIT 43.1 % (36.0-47.0); HEMOGLOBIN 14.4 g/dl (12.0-15.5); LYMPH # 1.5 10^3/uL (1.5-5.0); LYMPH % 18.7 % (24.0-44.0); MEAN CORPUSCULAR HEMOGLOBIN 29.9 pg (27.0-33.0); MEAN CORPUSCULAR HGB CONC 33.4 g/dl (32.0-36.5); MEAN CORPUSCULAR VOLUME 89.6 fl (80.0-96.0); MONO # 0.5 10^3/uL (0.0-0.8); MONO % 5.8 % (2.0-8.0); NEUTROPHILS # 5.8 10^3/uL (1.5-8.5); NEUTROPHILS % 73.1 % (36.0-66.0); PLATELET COUNT, AUTOMATED 296 10^3/uL (150-450); RED BLOOD COUNT 4.81 10^6/uL (4.00-5.40)
[2021-08-08 09:50] LABS: ALBUMIN 3.4 GM/DL (3.2-5.2); ALT/SGPT 30 U/L (12-78); BILIRUBIN,DIRECT 0.1 MG/DL (0.0-0.2); BILIRUBIN,TOTAL 0.9 MG/DL (0.2-1.0); BLOOD UREA NITROGEN 10 MG/DL (7-18); CARBON DIOXIDE LEVEL 23 MEQ/L (21-32); CHLORIDE LEVEL 108 MEQ/L (98-107); CREATININE FOR GFR 0.65 MG/DL (0.55-1.30); GLOMERULAR FILTRATION RATE > 60.0 (>58); GLUCOSE, FASTING 99 MG/DL (70-100); LIPASE 60 U/L (73-393); POTASSIUM SERUM 4.9 MEQ/L (3.5-5.1); SODIUM LEVEL 138 MEQ/L (136-145)
[2021-08-08 09:59] LABS: RSV AMPLIFICATION NEGATIVE (NEGATIVE)
[2021-08-08 12:14] VITALS: BP 125/77
== END 2021-08-08 12:21 | disposition home or self-care (01) ==
LOC: M ED 08:02
DX: R10.9 Unspecified abdominal pain (principal); R11.2 Nausea with vomiting, unspecified; B96.29 Other Escherichia coli [E. coli] as the cause of diseases classified elsewhere

== ENCOUNTER 2021-11-30 11:23 | Emergency (ER) | payer OTHER ==
[~2021-11-30] VITALS: Ht 154.9 cm; Wt 74.1 kg
[2021-11-30] MEDS ORDERED: NS 1,000 ML IV ONE (12:05)
[2021-11-30] MEDS ORDERED: METOCLOPRAMIDE INJ 10MG/2ML VIAL (J2765 PER 1) IV ONE (12:05)
[2021-11-30 12:51] LABS: BASO % 0.5 % (0.0-1.0); HEMATOCRIT 46.2 % (36.0-47.0); HEMOGLOBIN 15.5 g/dl (12.0-15.5); LYMPH # 0.8 10^3/uL (1.5-5.0); LYMPH % 20.6 % (24.0-44.0); MEAN CORPUSCULAR HEMOGLOBIN 29.6 pg (27.0-33.0); MEAN CORPUSCULAR HGB CONC 33.5 g/dl (32.0-36.5); MEAN CORPUSCULAR VOLUME 88.2 fl (80.0-96.0); MONO # 0.5 10^3/uL (0.0-0.8); MONO % 13.5 % (2.0-8.0); NEUTROPHILS # 2.5 10^3/uL (1.5-8.5); NEUTROPHILS % 65.1 % (36.0-66.0); PLATELET COUNT, AUTOMATED 208 10^3/uL (150-450); RED BLOOD COUNT 5.24 10^6/uL (4.00-5.40); WHITE BLOOD COUNT 3.8 10^3/uL (4.0-10.0)
[2021-11-30 13:26] LABS: BLOOD UREA NITROGEN 13 MG/DL (7-18); CALCIUM LEVEL 9.4 MG/DL (8.5-10.1); CARBON DIOXIDE LEVEL 27 MEQ/L (21-32); CHLORIDE LEVEL 104 MEQ/L (98-107); CREATININE FOR GFR 0.95 MG/DL (0.55-1.30); GLOMERULAR FILTRATION RATE > 60.0 (>58); GLUCOSE, FASTING 77 MG/DL (70-100); POTASSIUM SERUM 3.7 MEQ/L (3.5-5.1); SODIUM LEVEL 137 MEQ/L (136-145)
[2021-11-30] MEDS ORDERED: PROM25TA12 PO (13:52)
[2021-11-30 14:28] VITALS: BP 138/78
== END 2021-11-30 14:29 | disposition home or self-care (01) ==
LOC: M ED 11:23
DX: U07.1 COVID-19 (principal); E86.0 Dehydration; R11.2 Nausea with vomiting, unspecified
CPT/HCPCS: 71045; 80048; 81001; 85025; 96361; 96374; 99284; J2765

== ENCOUNTER 2022-06-09 14:19 | Emergency (ER) | payer OTHER ==
[~2022-06-09] VITALS: Ht 154.9 cm; Wt 71.4 kg
[2022-06-09 14:19] VITALS: BP 166/90
[2022-06-09 16:39] LABS: BASO # 0.1 10^3/uL (0.0-0.2); BASO % 0.6 % (0.0-1.0); HEMATOCRIT 38.4 % (36.0-47.0); HEMOGLOBIN 12.9 g/dl (12.0-15.5); LYMPH # 1.5 10^3/uL (1.5-5.0); LYMPH % 16.5 % (24.0-44.0); MEAN CORPUSCULAR HEMOGLOBIN 30.5 pg (27.0-33.0); MEAN CORPUSCULAR HGB CONC 33.6 g/dl (32.0-36.5); MEAN CORPUSCULAR VOLUME 90.8 fl (80.0-96.0); MONO # 0.3 10^3/uL (0.0-0.8); MONO % 2.9 % (2.0-8.0); NEUTROPHILS # 7.4 10^3/uL (1.5-8.5); NEUTROPHILS % 79.8 % (36.0-66.0); PLATELET COUNT, AUTOMATED 286 10^3/uL (150-450); RED BLOOD COUNT 4.23 10^6/uL (4.00-5.40); WHITE BLOOD COUNT 9.3 10^3/uL (4.0-10.0)
[2022-06-09 17:12] LABS: ALT/SGPT 18 U/L (12-78); BILIRUBIN,DIRECT 0.2 MG/DL (0.0-0.2); BILIRUBIN,TOTAL 0.7 MG/DL (0.2-1.0); BLOOD UREA NITROGEN 5 MG/DL (7-18); CALCIUM LEVEL 9.2 MG/DL (8.5-10.1); CARBON DIOXIDE LEVEL 27 MEQ/L (21-32); CHLORIDE LEVEL 110 MEQ/L (98-107); CREATININE FOR GFR 0.74 MG/DL (0.55-1.30); GLOMERULAR FILTRATION RATE > 60.0 (>58); GLUCOSE, FASTING 107 MG/DL (70-100); LIPASE 54 U/L (73-393); POTASSIUM SERUM 3.5 MEQ/L (3.5-5.1); SODIUM LEVEL 144 MEQ/L (136-145); TOTAL PROTEIN 6.9 GM/DL (6.4-8.2)
[2022-06-09] MEDS ORDERED: PANTOPRAZOLE 40MG VIAL IV ONE (17:25)
[2022-06-09] MEDS ORDERED: NS 1,000 ML IV ONE (17:25)
[2022-06-09] MEDS ORDERED: ISOVUE-370 76% 100ML VIAL As Ordered ONE (17:55)
[2022-06-09] MEDS ORDERED: CIPROFLOXACIN 500MG TABLET PO ONE (19:20)
[2022-06-09] MEDS ORDERED: metroNIDAZOLE (FLAGYL) 500MG TABLET PO ONE (19:20)
[2022-06-09] MEDS ORDERED: METR-265 PO (19:22)
[2022-06-09] MEDS ORDERED: CIPR-249 PO (19:22)
[2022-06-09] MEDS ORDERED: ONDA4TAB6 PO (19:26)
[2022-06-10] MEDS ORDERED: POTA1TAB14 PO (13:13)
[2022-06-10] MEDS ORDERED: DICY1CAP8 PO (13:13)
== END 2022-06-09 19:48 | disposition home or self-care (01) ==
LOC: M ED 14:19
DX: K57.32 Diverticulitis of large intestine without perforation or abscess without bleeding (principal); R51.9 Headache, unspecified; Z90.49 Acquired absence of other specified parts of digestive tract
CPT/HCPCS: 74177; 80048; 80076; 83690; 85025; 96361; 96374; 99283; C9113; Q9967

== ENCOUNTER 2022-06-10 08:21 | Emergency (ER) | payer OTHER ==
[~2022-06-10] VITALS: Ht 154.9 cm; Wt 70.2 kg
[~2022-06-10 08:21] MED LIST changes: +METR-265 PO
[2022-06-10 09:12] LABS: BASO # 0.1 10^3/uL (0.0-0.2); BASO % 0.9 % (0.0-1.0); EOS % 0.6 % (0.0-3.0); HEMATOCRIT 37.4 % (36.0-47.0); HEMOGLOBIN 12.7 g/dl (12.0-15.5); LYMPH # 1.4 10^3/uL (1.5-5.0); LYMPH % 21.5 % (24.0-44.0); MEAN CORPUSCULAR HEMOGLOBIN 30.5 pg (27.0-33.0); MEAN CORPUSCULAR VOLUME 89.7 fl (80.0-96.0); MONO # 0.3 10^3/uL (0.0-0.8); MONO % 5.2 % (2.0-8.0); NEUTROPHILS # 4.7 10^3/uL (1.5-8.5); NEUTROPHILS % 71.5 % (36.0-66.0); PLATELET COUNT, AUTOMATED 271 10^3/uL (150-450); RED BLOOD COUNT 4.17 10^6/uL (4.00-5.40); WHITE BLOOD COUNT 6.6 10^3/uL (4.0-10.0)
[2022-06-10 09:39] LABS: ALBUMIN 3.7 GM/DL (3.2-5.2); ALT/SGPT 22 U/L (12-78); BILIRUBIN,DIRECT 0.3 MG/DL (0.0-0.2); BLOOD UREA NITROGEN 4 MG/DL (7-18); CARBON DIOXIDE LEVEL 25 MEQ/L (21-32); CHLORIDE LEVEL 108 MEQ/L (98-107); CREATININE FOR GFR 0.77 MG/DL (0.55-1.30); GLOMERULAR FILTRATION RATE > 60.0 (>58); GLUCOSE, FASTING 117 MG/DL (70-100); LIPASE 70 U/L (73-393); POTASSIUM SERUM 3.1 MEQ/L (3.5-5.1); SODIUM LEVEL 141 MEQ/L (136-145); TOTAL PROTEIN 6.8 GM/DL (6.4-8.2)
[2022-06-10] MEDS ORDERED: ONDANSETRON 4MG ORAL DISINTEGRATING TAB PO ONE (11:15)
[2022-06-10] MEDS ORDERED: POTASSIUM CHLORIDE 10MEQ SR TABLET PO ONE (12:15)
[2022-06-10 12:48] VITALS: BP 143/66
[2022-06-10] MEDS ORDERED: POTA1TAB14 PO (13:13)
[2022-06-10] MEDS ORDERED: DICY1CAP8 PO (13:13)
== END 2022-06-10 13:44 | disposition home or self-care (01) ==
LOC: M ED 08:21
DX: K52.9 Noninfective gastroenteritis and colitis, unspecified (principal); E87.6 Hypokalemia; Z90.49 Acquired absence of other specified parts of digestive tract; Z90.89 Acquired absence of other organs; Z79.899 Other long term (current) drug therapy

== ENCOUNTER → 2022-07-06 | Outpatient (CLI) | payer OTHER ==
[~2022-07-06] MED LIST changes: +DICY1CAP8 PO; +POTA1TAB14 PO
[2022-07-06 17:56] LABS: ALBUMIN 3.8 GM/DL (3.2-5.2); ALT/SGPT 17 U/L (12-78); BILIRUBIN,TOTAL 0.6 MG/DL (0.2-1.0); BLOOD UREA NITROGEN 11 MG/DL (7-18); CALCIUM LEVEL 9.6 MG/DL (8.5-10.1); CARBON DIOXIDE LEVEL 28 MEQ/L (21-32); CHLORIDE LEVEL 104 MEQ/L (98-107); GLOMERULAR FILTRATION RATE > 60.0 (>58); GLUCOSE, FASTING 76 MG/DL (70-100); POTASSIUM SERUM 4.1 MEQ/L (3.5-5.1); SODIUM LEVEL 137 MEQ/L (136-145); THYROID STIMULATING HORMONE 0.609 uIU/ML (0.358-3.740); TOTAL PROTEIN 7.1 GM/DL (6.4-8.2)
[2022-07-06 18:27] LABS: HEMOGLOBIN A1c 5.5 %
== END ==
LOC: M PLALAB 15:21
PROVIDERS: ATTEND Nurse Practitioner Adult Health
DX: Z13.1 Encounter for screening for diabetes mellitus (principal)

== ENCOUNTER 2022-09-06 03:50 | Emergency (ER) | payer OTHER ==
[~2022-09-06] VITALS: Ht 154.9 cm; Wt 68.2 kg
[2022-09-06 08:15] VITALS: BP 149/70
== END 2022-09-06 08:50 | disposition left against medical advice (07) ==
LOC: M ED 06:50
DX: Z53.21 Procedure and treatment not carried out due to patient leaving prior to being seen by health care provider (principal)

== ENCOUNTER 2022-12-23 04:39 | Emergency (ER) | payer OTHER ==
[~2022-12-23] VITALS: Ht 154.9 cm; Wt 68.1 kg
[2022-12-23 05:55] LABS: BASO # 0.1 10^3/uL (0.0-0.2); BASO % 0.7 % (0.0-1.0); EOS % 0.4 % (0.0-3.0); HEMATOCRIT 45.5 % (36.0-47.0); HEMOGLOBIN 15.3 g/dl (12.0-15.5); LYMPH # 1.5 10^3/uL (1.5-5.0); LYMPH % 20.3 % (24.0-44.0); MEAN CORPUSCULAR HEMOGLOBIN 29.9 pg (27.0-33.0); MEAN CORPUSCULAR HGB CONC 33.6 g/dl (32.0-36.5); MEAN CORPUSCULAR VOLUME 88.9 fl (80.0-96.0); MONO # 0.4 10^3/uL (0.0-0.8); MONO % 5.8 % (2.0-8.0); NEUTROPHILS # 5.5 10^3/uL (1.5-8.5); NEUTROPHILS % 72.5 % (36.0-66.0); PLATELET COUNT, AUTOMATED 308 10^3/uL (150-450); RED BLOOD COUNT 5.12 10^6/uL (4.00-5.40); WHITE BLOOD COUNT 7.6 10^3/uL (4.0-10.0)
[2022-12-23 06:08] LABS: LIPASE 24 U/L (12-53)
[2022-12-23 06:10] LABS: AMYLASE 58 U/L (30-118)
[2022-12-23 06:14] LABS: ALBUMIN 4.4 G/DL (3.2-5.2); ALKALINE PHOSPHATASE 113 U/L (46-116); ALT/SGPT 18 U/L (7.0-40); AST/SGOT 17 U/L (<34); BILIRUBIN,DIRECT 0.3 MG/DL (<0.4); BILIRUBIN,TOTAL 1.1 MG/DL (0.3-1.2); BLOOD UREA NITROGEN 10 MG/DL (9-23); CARBON DIOXIDE LEVEL 24 MMOL/L (20-31); CHLORIDE LEVEL 103 MMOL/L (98-107); CREATININE FOR GFR 0.72 MG/DL (0.55-1.30); GLOMERULAR FILTRATION RATE > 60.0 (>58); GLUCOSE, FASTING 128 MG/DL (60-100); HCG, SERUM QUANTITATIVE < 2.6 MIU/ML (<4.2); POTASSIUM SERUM 3.4 MMOL/L (3.5-5.1); SODIUM LEVEL 139 MMOL/L (136-145); TOTAL PROTEIN 8.1 G/DL (5.7-8.2)
[2022-12-23 06:17] LABS: INR 0.89; PROTHROMBIN TIME 12.2 SECONDS (12.5-14.5)
[2022-12-23] MEDS ORDERED: ONDANSETRON 4MG 2ML VIAL IV ONE (08:00)
[2022-12-23] MEDS ORDERED: MORPHINE 4 MG/ML 1ML VIAL IV ONE (08:00)
[2022-12-23] MEDS ORDERED: NS 1,000 ML IV ONE (08:00)
[2022-12-23] MEDS ORDERED: ISOVUE-370 76% 100ML VIAL As Ordered ONE (08:08)
[2022-12-23] MEDS ORDERED: ONDA4TAB6 PO (09:13)
[2022-12-23 09:23] VITALS: BP 138/82
== END 2022-12-23 09:39 | disposition home or self-care (01) ==
LOC: M ED 04:39
DX: R10.9 Unspecified abdominal pain (principal); R11.0 Nausea; Z90.89 Acquired absence of other organs; F17.200 Nicotine dependence, unspecified, uncomplicated; Z90.49 Acquired absence of other specified parts of digestive tract
CPT/HCPCS: 74177; 80048; 80076; 81000; 81015; 82150; 83690; 84702; 85025; 85610; 96374; 96375; 99283; J2270; J2405

== ENCOUNTER 2023-04-14 06:01 | Emergency (ER) | payer OTHER ==
[~2023-04-14] VITALS: Ht 154.9 cm; Wt 68.4 kg
[~2023-04-14 06:01] MED LIST changes: +POTA-298 PO; -POTA1TAB14 PO
[2023-04-14] MEDS ORDERED: NS 1,000 ML IV ONE (07:05)
[2023-04-14] MEDS ORDERED: ONDANSETRON 4MG 2ML VIAL IV ONE (07:05)
[2023-04-14] MEDS ORDERED: KETOROLAC 30 MG/ML 1ML VIAL IV ONE (07:15)
[2023-04-14 08:12] LABS: BASO # 0.1 10^3/uL (0.0-0.2); EOS % 0.2 % (0.0-3.0); HEMATOCRIT 42.8 % (36.0-47.0); HEMOGLOBIN 14.3 g/dl (12.0-15.5); LYMPH # 1.1 10^3/uL (1.5-5.0); LYMPH % 22.2 % (24.0-44.0); MEAN CORPUSCULAR HEMOGLOBIN 29.9 pg (27.0-33.0); MEAN CORPUSCULAR HGB CONC 33.4 g/dl (32.0-36.5); MEAN CORPUSCULAR VOLUME 89.4 fl (80.0-96.0); MONO # 0.4 10^3/uL (0.0-0.8); MONO % 8.3 % (2.0-8.0); NEUTROPHILS # 3.4 10^3/uL (1.5-8.5); NEUTROPHILS % 67.9 % (36.0-66.0); PLATELET COUNT, AUTOMATED 251 10^3/uL (150-450); RED BLOOD COUNT 4.79 10^6/uL (4.00-5.40)
[2023-04-14] MEDS ORDERED: ISOVUE-370 76% 100ML VIAL As Ordered ONE (08:14)
[2023-04-14] MEDS ORDERED: POTASSIUM CHLORIDE 10MEQ SR TABLET PO ONE (08:40)
[2023-04-14 08:44] LABS: ALBUMIN 4.2 G/DL (3.2-5.2); BILIRUBIN,DIRECT 0.4 MG/DL (<0.4); BILIRUBIN,TOTAL 1.3 MG/DL (0.3-1.2); TOTAL PROTEIN 7.4 G/DL (5.7-8.2)
[2023-04-14 09:24] LABS: MAGNESIUM LEVEL 1.9 MG/DL (1.8-2.4); POTASSIUM SERUM 3.1 MMOL/L (3.5-5.1)
[2023-04-14] MEDS ORDERED: ONDA4TAB6 PO (09:39)
[2023-04-14] MEDS ORDERED: ZITH500T PO (09:39)
[2023-04-14 09:41] VITALS: BP 132/71
[2023-04-14] MEDS ORDERED: POTA-298 PO (09:41)
== END 2023-04-14 09:56 | disposition home or self-care (01) ==
LOC: M ED 06:01
DX: R11.2 Nausea with vomiting, unspecified (principal); R19.7 Diarrhea, unspecified; F17.200 Nicotine dependence, unspecified, uncomplicated; Z79.899 Other long term (current) drug therapy
CPT/HCPCS: 36415; 74177; 80047; 80076; 82550; 82553; 83605; 83690; 83735; 84132; 85025; 87507; 93005; 96374; 96375; 99284; J1885; J2405; Q9967

== ENCOUNTER → 2023-04-25 | Outpatient (CLI) | payer OTHER ==
[~2023-04-25] MED LIST changes: +ZITH500T PO
== END ==
LOC: M PLAIMG 11:21 → M PLALAB 11:21
PROVIDERS: ATTEND Nurse Practitioner Family
DX: M25.551 Pain in right hip (principal); M54.50 Low back pain, unspecified

== ENCOUNTER → 2023-07-20 | Outpatient (CLI) | payer OTHER ==
[2023-07-20 13:45] LABS: HEMATOCRIT 42.6 % (36.0-47.0); HEMOGLOBIN 14.1 g/dl (12.0-15.5); MEAN CORPUSCULAR HEMOGLOBIN 29.9 pg (27.0-33.0); MEAN CORPUSCULAR HGB CONC 33.1 g/dl (32.0-36.5); MEAN CORPUSCULAR VOLUME 90.4 fl (80.0-96.0); PLATELET COUNT, AUTOMATED 265 10^3/uL (150-450); RED BLOOD COUNT 4.71 10^6/uL (4.00-5.40); WHITE BLOOD COUNT 5.6 10^3/uL (4.0-10.0)
[2023-07-20 14:01] LABS: HEMOGLOBIN A1c 5.1 % (4.0-6.0)
[2023-07-20 14:09] LABS: ALBUMIN 3.9 G/DL (3.2-5.2); ALKALINE PHOSPHATASE 90 U/L (46-116); ALT/SGPT 11 U/L (7.0-40); AST/SGOT < 8 U/L (<34); BLOOD UREA NITROGEN 10 MG/DL (9-23); CALCIUM LEVEL 9.3 MG/DL (8.5-10.1); CARBON DIOXIDE LEVEL 27 MMOL/L (20-31); CHLORIDE LEVEL 107 MMOL/L (98-107); CREATININE FOR GFR 0.81 MG/DL (0.55-1.30); GLOMERULAR FILTRATION RATE > 60.0 (>58); GLUCOSE, FASTING 104 MG/DL (60-100); POTASSIUM SERUM 4.2 MMOL/L (3.5-5.1); SODIUM LEVEL 143 MMOL/L (136-145); TOTAL PROTEIN 6.8 G/DL (5.7-8.2)
[2023-07-20 14:12] LABS: THYROID STIMULATING HORMONE 1.542 uIU/ML (0.55-4.78)
== END ==
LOC: M PLALAB 09:02
PROVIDERS: ATTEND Nurse Practitioner Adult Health
DX: Z00.00 Encounter for general adult medical examination without abnormal findings (principal)

== ENCOUNTER → 2023-07-20 | Outpatient (CLI) | payer OTHER | LOC: M WHC 08:26 | PROVIDERS: ATTEND Nurse Practitioner Adult Health | DX: Z12.31 Encounter for screening mammogram for malignant neoplasm of breast (principal) ==

== ENCOUNTER → 2023-08-31 | Outpatient (CLI) | payer OTHER, SELFPAY ==
[~2023-08-31] MED LIST changes: +methylPREDNISolone SUSP 40MG/ML 1ML VIAL (DEPO MEDROL) As Ordered ONE
== END ==
LOC: M IRPRO 14:39
PROVIDERS: ATTEND Orthopaedic Surgery
DX: M70.61 Trochanteric bursitis, right hip (principal)
CPT/HCPCS: 20611; J0665; J1030

== ENCOUNTER 2023-11-02 08:45 | Outpatient (RCR) | payer OTHER, SELFPAY ==
[~2023-11-02 08:45] MED LIST changes: -methylPREDNISolone SUSP 40MG/ML 1ML VIAL (DEPO MEDROL) As Ordered ONE
== END 2023-11-13 ==
LOC: M PT 08:45
PROVIDERS: ATTEND Orthopaedic Surgery
DX: M70.61 Trochanteric bursitis, right hip (principal)

== ENCOUNTER 2023-11-16 09:04 | Outpatient (RCR) | payer OTHER ==
[2023-11-27] MEDS ORDERED: DICL100G10 (07:47)
[2023-11-27] MEDS ORDERED: VANC1CAP6 PO (11:05)
[2023-11-27] MEDS ORDERED: ONDA4TAB6 PO (11:07)
== END 2023-12-14 ==
LOC: M PT 09:04
PROVIDERS: ATTEND Orthopaedic Surgery
DX: M70.61 Trochanteric bursitis, right hip (principal)

== ENCOUNTER 2023-11-27 07:38 | Emergency (ER) | payer MEDICAID, OTHER ==
[~2023-11-27] VITALS: Ht 154.9 cm; Wt 68.7 kg
[2023-11-27 07:38] VITALS: TEMP 97.5
[2023-11-27] MEDS ORDERED: DICL100G10 (07:47)
[2023-11-27 08:21] LABS: BASO # 0.1 10^3/uL (0.0-0.2); BASO % 0.8 % (0.0-1.0); EOS % 0.3 % (0.0-3.0); HEMATOCRIT 39.2 % (36.0-47.0); HEMOGLOBIN 13.1 g/dl (12.0-15.5); LYMPH # 0.9 10^3/uL (1.5-5.0); LYMPH % 14.4 % (24.0-44.0); MEAN CORPUSCULAR HGB CONC 33.4 g/dl (32.0-36.5); MEAN CORPUSCULAR VOLUME 89.7 fl (80.0-96.0); MONO # 0.2 10^3/uL (0.0-0.8); MONO % 3.2 % (2.0-8.0); NEUTROPHILS % 80.7 % (36.0-66.0); PLATELET COUNT, AUTOMATED 316 10^3/uL (150-450); RED BLOOD COUNT 4.37 10^6/uL (4.00-5.40); WHITE BLOOD COUNT 6.2 10^3/uL (4.0-10.0)
[2023-11-27 08:40] LABS: LIPASE 27 U/L (12-53)
[2023-11-27 08:41] LABS: HCG, SERUM QUALITATIVE NEGATIVE (NEGATIVE)
[2023-11-27 08:42] LABS: ALBUMIN 3.5 G/DL (3.2-5.2); ALKALINE PHOSPHATASE 98 U/L (46-116); ALT/SGPT 17 U/L (7.0-40); AST/SGOT 12 U/L (<34); BILIRUBIN,DIRECT 0.1 MG/DL (<0.4); BILIRUBIN,TOTAL 0.4 MG/DL (0.3-1.2); TOTAL PROTEIN 6.7 G/DL (5.7-8.2)
[2023-11-27] MEDS ORDERED: KETOROLAC 30 MG/ML 1ML VIAL IV ONE (08:45)
[2023-11-27 08:51] LABS: RSV AMPLIFICATION NEGATIVE (NEGATIVE)
[2023-11-27] MEDS ORDERED: ISOVUE-370 76% 100ML VIAL As Ordered ONE (08:58)
[2023-11-27] MEDS ORDERED: VANC1CAP6 PO (11:05)
[2023-11-27] MEDS ORDERED: ONDA4TAB6 PO (11:07)
[2023-11-27 11:11] VITALS: BP 171/82; O2SAT 100
== END 2023-11-27 11:28 | disposition home or self-care (01) ==
LOC: M ED 07:38
DX: A04.72 Enterocolitis due to Clostridium difficile, not specified as recurrent (principal); M25.562 Pain in left knee; K57.92 Diverticulitis of intestine, part unspecified, without perforation or abscess without bleeding; F17.200 Nicotine dependence, unspecified, uncomplicated
CPT/HCPCS: 73564; 74177; 80047; 80076; 81001; 83690; 84703; 85025; 87507; 87631; 96374; 99284; J1885; Q9967

== ENCOUNTER 2023-12-05 18:29 | Emergency (ER) | payer OTHER ==
[~2023-12-05] VITALS: Ht 154.9 cm; Wt 65.9 kg
[~2023-12-05 18:29] MED LIST changes: +DICL100G10; +VANC1CAP6 PO
[2023-12-05 18:30] VITALS: TEMP 98.4
[2023-12-05 19:18] LABS: BASO # 0.1 10^3/uL (0.0-0.2); BASO % 0.8 % (0.0-1.0); EOS # 0.1 10^3/uL (0.0-0.5); EOS % 0.6 % (0.0-3.0); HEMATOCRIT 41.7 % (36.0-47.0); HEMOGLOBIN 13.9 g/dl (12.0-15.5); LYMPH # 2.1 10^3/uL (1.5-5.0); LYMPH % 17.5 % (24.0-44.0); MEAN CORPUSCULAR HEMOGLOBIN 29.8 pg (27.0-33.0); MEAN CORPUSCULAR HGB CONC 33.3 g/dl (32.0-36.5); MEAN CORPUSCULAR VOLUME 89.3 fl (80.0-96.0); MONO # 0.7 10^3/uL (0.0-0.8); MONO % 5.9 % (2.0-8.0); NEUTROPHILS # 8.8 10^3/uL (1.5-8.5); NEUTROPHILS % 74.7 % (36.0-66.0); PLATELET COUNT, AUTOMATED 367 10^3/uL (150-450); RED BLOOD COUNT 4.67 10^6/uL (4.00-5.40); WHITE BLOOD COUNT 11.8 10^3/uL (4.0-10.0)
[2023-12-05 19:40] LABS: BLOOD UREA NITROGEN 9 MG/DL (9-23); CALCIUM LEVEL 8.9 MG/DL (8.5-10.1); CARBON DIOXIDE LEVEL 26 MMOL/L (20-31); CHLORIDE LEVEL 102 MMOL/L (98-107); CREATININE FOR GFR 0.77 MG/DL (0.55-1.30); GLOMERULAR FILTRATION RATE > 60.0 (>58); GLUCOSE, FASTING 142 MG/DL (60-100); POTASSIUM SERUM 3.3 MMOL/L (3.5-5.1); SODIUM LEVEL 134 MMOL/L (136-145)
[2023-12-05 20:31] LABS: CK-MB VALUE MASS < 1.0 NG/ML (<3.6)
[2023-12-05 20:32] LABS: CPK CREATINE PHOSPHOKINASE 46 U/L (34-145); MB/CK RELATIVE INDEX 2.17 (< OR =4)
[2023-12-05 22:00] VITALS: BP 144/77; O2SAT 98
== END 2023-12-05 22:00 | disposition home or self-care (01) ==
LOC: M ED 18:29
DX: R55 Syncope and collapse (principal); F17.290 Nicotine dependence, other tobacco product, uncomplicated; Z79.899 Other long term (current) drug therapy; Z91.010 Allergy to peanuts

== ENCOUNTER 2023-12-13 05:30 | Emergency (ER) | payer OTHER ==
[~2023-12-13] VITALS: Ht 154.9 cm; Wt 66.3 kg
[2023-12-13 12:42] LABS: BASO # 0.1 10^3/uL (0.0-0.2); BASO % 0.6 % (0.0-1.0); EOS % 0.1 % (0.0-3.0); HEMATOCRIT 45.1 % (36.0-47.0); HEMOGLOBIN 14.9 g/dl (12.0-15.5); LYMPH # 1.2 10^3/uL (1.5-5.0); LYMPH % 14.6 % (24.0-44.0); MEAN CORPUSCULAR HEMOGLOBIN 29.7 pg (27.0-33.0); MEAN CORPUSCULAR VOLUME 89.8 fl (80.0-96.0); MONO # 0.3 10^3/uL (0.0-0.8); MONO % 3.5 % (2.0-8.0); NEUTROPHILS # 6.5 10^3/uL (1.5-8.5); NEUTROPHILS % 81.1 % (36.0-66.0); RED BLOOD COUNT 5.02 10^6/uL (4.00-5.40)
[2023-12-13] MEDS ORDERED: NS 1,000 ML IV ONE (12:45)
[2023-12-13 13:05] LABS: HCG, SERUM QUALITATIVE NEGATIVE (NEGATIVE)
[2023-12-13 13:11] LABS: RSV AMPLIFICATION NEGATIVE (NEGATIVE)
[2023-12-13 13:13] LABS: ALBUMIN 3.7 G/DL (3.2-5.2); ALKALINE PHOSPHATASE 85 U/L (46-116); ALT/SGPT 15 U/L (7.0-40); AST/SGOT 30 U/L (<34); BILIRUBIN,DIRECT 0.3 MG/DL (<0.4); BILIRUBIN,TOTAL 1.2 MG/DL (0.3-1.2); BLOOD UREA NITROGEN 9 MG/DL (9-23); CARBON DIOXIDE LEVEL 24 MMOL/L (20-31); CHLORIDE LEVEL 107 MMOL/L (98-107); CREATININE FOR GFR 0.64 MG/DL (0.55-1.30); GLOMERULAR FILTRATION RATE > 60.0 (>58); GLUCOSE, FASTING 95 MG/DL (60-100); LIPASE 23 U/L (12-53); POTASSIUM SERUM 4.6 MMOL/L (3.5-5.1); SODIUM LEVEL 137 MMOL/L (136-145)
[2023-12-13] MEDS ORDERED: ISOVUE-370 76% 100ML VIAL As Ordered ONE (13:45)
[2023-12-13 15:22] VITALS: BP 156/78; TEMP 96.9; O2SAT 100
== END 2023-12-13 15:23 | disposition home or self-care (01) ==
LOC: M ED 05:30
DX: R10.9 Unspecified abdominal pain (principal); Z91.010 Allergy to peanuts; Z79.899 Other long term (current) drug therapy
CPT/HCPCS: 74177; 80047; 80048; 80076; 81001; 83605; 83690; 84703; 85025; 87631; 96360; 96361; 99284; Q9967

== ENCOUNTER 2023-12-21 09:36 | Outpatient (RCR) | payer OTHER | END 2024-01-12 | LOC: M PT 09:36 | PROVIDERS: ATTEND Orthopaedic Surgery | DX: M17.12 Unilateral primary osteoarthritis, left knee (principal) ==

== ENCOUNTER 2023-12-31 09:05 | Emergency (ER) | payer OTHER ==
[~2023-12-31] VITALS: Ht 154.9 cm; Wt 66.5 kg
[2023-12-31 11:49] VITALS: BP 168/87; TEMP 98.8; O2SAT 100
== END 2023-12-31 11:55 | disposition home or self-care (01) ==
LOC: M ED 09:05
DX: J09.X9 Influenza due to identified novel influenza A virus with other manifestations (principal); F17.210 Nicotine dependence, cigarettes, uncomplicated; Z91.010 Allergy to peanuts

== ENCOUNTER → 2024-02-24 | Outpatient (REF) | payer OTHER, MEDICAID ==
[2024-02-24 13:26] LABS: BASO # 0.1 10^3/uL (0.0-0.2); BASO % 1.2 % (0.0-1.0); EOS # 1.5 10^3/uL (0.0-0.5); HEMATOCRIT 39.6 % (36.0-47.0); HEMOGLOBIN 13.1 g/dl (12.0-15.5); LYMPH # 2.1 10^3/uL (1.5-5.0); LYMPH % 28.2 % (24.0-44.0); MEAN CORPUSCULAR HEMOGLOBIN 30.1 pg (27.0-33.0); MEAN CORPUSCULAR HGB CONC 33.1 g/dl (32.0-36.5); MONO # 0.4 10^3/uL (0.0-0.8); NEUTROPHILS # 3.3 10^3/uL (1.5-8.5); NEUTROPHILS % 44.3 % (36.0-66.0); PLATELET COUNT, AUTOMATED 290 10^3/uL (150-450); RED BLOOD COUNT 4.35 10^6/uL (4.00-5.40); WHITE BLOOD COUNT 7.4 10^3/uL (4.0-10.0)
[2024-02-24 13:52] LABS: ALBUMIN 3.6 G/DL (3.2-5.2); ALKALINE PHOSPHATASE 104 U/L (46-116); ALT/SGPT 14 U/L (7.0-40); AST/SGOT 11 U/L (<34); BILIRUBIN,TOTAL 0.8 MG/DL (0.3-1.2); BLOOD UREA NITROGEN 12 MG/DL (9-23); CALCIUM LEVEL 9.3 MG/DL (8.5-10.1); CARBON DIOXIDE LEVEL 29 MMOL/L (20-31); CHLORIDE LEVEL 105 MMOL/L (98-107); CREATININE FOR GFR 0.79 MG/DL (0.55-1.30); GLOMERULAR FILTRATION RATE > 60.0 (>58); GLUCOSE, FASTING 95 MG/DL (60-100); POTASSIUM SERUM 4.4 MMOL/L (3.5-5.1); SODIUM LEVEL 138 MMOL/L (136-145); TOTAL PROTEIN 6.6 G/DL (5.7-8.2)
== END ==
LOC: M SFHCPLAZ 10:23
PROVIDERS: ATTEND Family Medicine
DX: R19.7 Diarrhea, unspecified (principal); R10.9 Unspecified abdominal pain; Z86.19 Personal history of other infectious and parasitic diseases

== ENCOUNTER → 2024-02-29 | Outpatient (REF) | payer OTHER, MEDICAID ==
[~2024-02-29] MED LIST changes: +AMOX875T2 PO; +IBUP200C28 PO; +TUMS500C PO
== END ==
LOC: M LAB REF 16:14
PROVIDERS: ATTEND Nurse Practitioner Family
DX: R30.0 Dysuria (principal)

== ENCOUNTER 2024-03-01 01:46 | Emergency (ER) | payer MEDICAID, OTHER ==
[~2024-03-01] VITALS: Ht 154.9 cm; Wt 67.8 kg
[~2024-03-01 01:46] MED LIST changes: -AMOX875T2 PO; -IBUP200C28 PO; -TUMS500C PO
[2024-03-01] MEDS ORDERED: TUMS500C PO (01:54)
[2024-03-01] MEDS ORDERED: IBUP200C28 PO (01:54)
[2024-03-01 03:04] LABS: BASO # 0.1 10^3/uL (0.0-0.2); BASO % 0.8 % (0.0-1.0); EOS # 0.2 10^3/uL (0.0-0.5); EOS % 1.6 % (0.0-3.0); HEMATOCRIT 39.5 % (36.0-47.0); HEMOGLOBIN 13.4 g/dl (12.0-15.5); LYMPH # 1.8 10^3/uL (1.5-5.0); MEAN CORPUSCULAR HEMOGLOBIN 30.2 pg (27.0-33.0); MEAN CORPUSCULAR HGB CONC 33.9 g/dl (32.0-36.5); MEAN CORPUSCULAR VOLUME 89.2 fl (80.0-96.0); MONO # 0.5 10^3/uL (0.0-0.8); MONO % 5.1 % (2.0-8.0); NEUTROPHILS % 75.1 % (36.0-66.0); PLATELET COUNT, AUTOMATED 298 10^3/uL (150-450); RED BLOOD COUNT 4.43 10^6/uL (4.00-5.40); WHITE BLOOD COUNT 10.6 10^3/uL (4.0-10.0)
[2024-03-01 03:34] LABS: LIPASE 34 U/L (12-53)
[2024-03-01 03:36] LABS: ALBUMIN 3.5 G/DL (3.2-5.2); ALKALINE PHOSPHATASE 113 U/L (46-116); ALT/SGPT 28 U/L (7.0-40); AST/SGOT 36 U/L (<34); BILIRUBIN,DIRECT 0.3 MG/DL (<0.4); BLOOD UREA NITROGEN 13 MG/DL (9-23); CALCIUM LEVEL 9.4 MG/DL (8.5-10.1); CARBON DIOXIDE LEVEL 29 MMOL/L (20-31); CHLORIDE LEVEL 104 MMOL/L (98-107); CREATININE FOR GFR 0.79 MG/DL (0.55-1.30); GLOMERULAR FILTRATION RATE > 60.0 (>58); GLUCOSE, FASTING 112 MG/DL (60-100); POTASSIUM SERUM 3.6 MMOL/L (3.5-5.1); SODIUM LEVEL 140 MMOL/L (136-145)
[2024-03-01] MEDS: NS 1,000 ML IV SCH (05:53)
[2024-03-01] MEDS: PANTOPRAZOLE 40MG VIAL IV ONE (05:55)
[2024-03-01] MEDS: GASTROGRAFIN SOLUTION 30ML PO SCH (06:12)
[2024-03-01 06:25] LABS: CK-MB VALUE MASS < 1.0 NG/ML (<3.6)
[2024-03-01 06:27] LABS: CPK CREATINE PHOSPHOKINASE 64 U/L (34-145); MB/CK RELATIVE INDEX 1.56 (< OR =4)
[2024-03-01 06:36] LABS: CK-MB VALUE MASS < 1.0 NG/ML (<3.6); CPK CREATINE PHOSPHOKINASE 65 U/L (34-145); MB/CK RELATIVE INDEX 1.53 (< OR =4)
[2024-03-01] MEDS ORDERED: ISOVUE-370 76% 100ML VIAL As Ordered ONE (07:32)
[2024-03-01] MEDS ORDERED: AMOX875T2 PO (08:21)
[2024-03-01 08:31] VITALS: BP 137/74; TEMP 97.4; O2SAT 100
== END 2024-03-01 08:51 | disposition home or self-care (01) ==
LOC: M ED 01:46
DX: K57.92 Diverticulitis of intestine, part unspecified, without perforation or abscess without bleeding (principal); R00.1 Bradycardia, unspecified; Z91.010 Allergy to peanuts; Z79.1 Long term (current) use of non-steroidal anti-inflammatories (NSAID); Z79.2 Long term (current) use of antibiotics
CPT/HCPCS: 74177; 80048; 80076; 81001; 82550; 82553; 83690; 85025; 87507; 93005; 96361; 96374; 99284; C9113; Q9963; Q9967

== ENCOUNTER 2024-03-18 06:35 | Emergency (ER) | payer MEDICAID, OTHER ==
[~2024-03-18] VITALS: Ht 154.9 cm; Wt 65.1 kg
[~2024-03-18 06:35] MED LIST changes: +AMOX875T2 PO; +IBUP200C28 PO; +TUMS500C PO
[2024-03-18 07:35] LABS: BASO # 0.1 10^3/uL (0.0-0.2); BASO % 0.6 % (0.0-1.0); EOS # 0.4 10^3/uL (0.0-0.5); EOS % 4.8 % (0.0-3.0); HEMATOCRIT 42.6 % (36.0-47.0); HEMOGLOBIN 14.4 g/dl (12.0-15.5); LYMPH # 1.2 10^3/uL (1.5-5.0); LYMPH % 14.5 % (24.0-44.0); MEAN CORPUSCULAR HEMOGLOBIN 30.3 pg (27.0-33.0); MEAN CORPUSCULAR HGB CONC 33.8 g/dl (32.0-36.5); MEAN CORPUSCULAR VOLUME 89.5 fl (80.0-96.0); MONO # 0.5 10^3/uL (0.0-0.8); MONO % 5.8 % (2.0-8.0); NEUTROPHILS # 6.1 10^3/uL (1.5-8.5); NEUTROPHILS % 74.2 % (36.0-66.0); PLATELET COUNT, AUTOMATED 283 10^3/uL (150-450); RED BLOOD COUNT 4.76 10^6/uL (4.00-5.40); WHITE BLOOD COUNT 8.3 10^3/uL (4.0-10.0)
[2024-03-18] MEDS: NS 1,000 ML IV ONE (07:37)
[2024-03-18] MEDS: ONDANSETRON 4MG 2ML VIAL IV ONE (07:37)
[2024-03-18 08:06] LABS: LIPASE 30 U/L (12-53)
[2024-03-18 08:08] LABS: ALBUMIN 3.6 G/DL (3.2-5.2); ALKALINE PHOSPHATASE 92 U/L (46-116); ALT/SGPT 13 U/L (7.0-40); AST/SGOT 9 U/L (<34); BILIRUBIN,DIRECT 0.2 MG/DL (<0.4); BLOOD UREA NITROGEN 8 MG/DL (9-23); CALCIUM LEVEL 9.2 MG/DL (8.5-10.1); CARBON DIOXIDE LEVEL 25 MMOL/L (20-31); CHLORIDE LEVEL 107 MMOL/L (98-107); CREATININE FOR GFR 0.78 MG/DL (0.55-1.30); GLOMERULAR FILTRATION RATE > 60.0 (>58); GLUCOSE, FASTING 89 MG/DL (60-100); POTASSIUM SERUM 3.8 MMOL/L (3.5-5.1); SODIUM LEVEL 140 MMOL/L (136-145); TOTAL PROTEIN 7.2 G/DL (5.7-8.2)
[2024-03-18 08:11] LABS: HCG, SERUM QUALITATIVE NEGATIVE (NEGATIVE)
[2024-03-18 10:20] VITALS: BP 136/63; TEMP 97.8; O2SAT 100
[2024-03-18] MEDS ORDERED: DIFI200T PO (10:36)
== END 2024-03-18 10:59 | disposition home or self-care (01) ==
LOC: M ED 06:35
DX: A04.72 Enterocolitis due to Clostridium difficile, not specified as recurrent (principal); Z79.2 Long term (current) use of antibiotics; Z79.899 Other long term (current) drug therapy; Z79.1 Long term (current) use of non-steroidal anti-inflammatories (NSAID)
CPT/HCPCS: 36415; 74021; 80048; 80076; 81001; 83690; 84703; 85025; 87086; 87507; 96361; 96374; 99284; J2405

== ENCOUNTER → 2024-03-30 | Outpatient (REF) | payer OTHER, MEDICAID ==
[~2024-03-30] MED LIST changes: +DIFI200T PO
== END ==
LOC: M SFHCPLAZ 17:07
PROVIDERS: ATTEND Student in an Organized Health Care Education/Training Program
DX: J02.9 Acute pharyngitis, unspecified (principal)

== ENCOUNTER 2024-06-04 06:29 | Emergency (ER) | payer MEDICAID, OTHER ==
[~2024-06-04] VITALS: Ht 154.9 cm; Wt 64.0 kg
[~2024-06-04 06:29] MED LIST changes: +ONDA-282 PO; -ONDA4TAB6 PO
[2024-06-04] MEDS ORDERED: OMEP40CA5 (07:15)
[2024-06-04] MEDS ORDERED: ACET-683 PO (07:15)
[2024-06-04 08:13] LABS: BASO % 0.6 % (0.0-1.0); EOS % 0.1 % (0.0-3.0); HEMATOCRIT 39.8 % (36.0-47.0); HEMOGLOBIN 13.4 g/dl (12.0-15.5); LYMPH % 13.2 % (24.0-44.0); MEAN CORPUSCULAR HEMOGLOBIN 30.5 pg (27.0-33.0); MEAN CORPUSCULAR HGB CONC 33.7 g/dl (32.0-36.5); MEAN CORPUSCULAR VOLUME 90.5 fl (80.0-96.0); MONO # 0.3 10^3/uL (0.0-0.8); PLATELET COUNT, AUTOMATED 271 10^3/uL (150-450); WHITE BLOOD COUNT 7.3 10^3/uL (4.0-10.0)
[2024-06-04 08:38] LABS: LIPASE 31 U/L (12-53)
[2024-06-04 08:40] LABS: ALBUMIN 3.7 G/DL (3.2-5.2); ALKALINE PHOSPHATASE 91 U/L (46-116); ALT/SGPT 13 U/L (7.0-40); AST/SGOT 9 U/L (<34); BILIRUBIN,TOTAL 0.7 MG/DL (0.3-1.2); BLOOD UREA NITROGEN 16 MG/DL (9-23); CALCIUM LEVEL 9.1 MG/DL (8.5-10.1); CARBON DIOXIDE LEVEL 26 MMOL/L (20-31); CHLORIDE LEVEL 107 MMOL/L (98-107); CREATININE FOR GFR 0.71 MG/DL (0.55-1.30); GLOMERULAR FILTRATION RATE > 60.0 (>58); GLUCOSE, FASTING 117 MG/DL (60-100); POTASSIUM SERUM 3.7 MMOL/L (3.5-5.1); SODIUM LEVEL 139 MMOL/L (136-145); TOTAL PROTEIN 6.7 G/DL (5.7-8.2)
[2024-06-04 09:58] VITALS: BP 156/86; TEMP 97.5; O2SAT 98
== END 2024-06-04 10:00 | disposition home or self-care (01) ==
LOC: M ED 06:29
DX: R19.7 Diarrhea, unspecified (principal); Z79.1 Long term (current) use of non-steroidal anti-inflammatories (NSAID)

== ENCOUNTER 2024-08-07 05:09 | Emergency (ER) | payer MEDICAID, OTHER ==
[~2024-08-07] VITALS: Ht 154.9 cm; Wt 62.7 kg
[~2024-08-07 05:09] MED LIST changes: +ACET-683 PO; +OMEP40CA5
[2024-08-07 07:57] LABS: BASO # 0.1 10^3/uL (0.0-0.2); BASO % 0.9 % (0.0-1.0); HEMATOCRIT 41.8 % (36.0-47.0); HEMOGLOBIN 14.2 g/dl (12.0-15.5); LYMPH % 15.8 % (24.0-44.0); MEAN CORPUSCULAR HEMOGLOBIN 30.5 pg (27.0-33.0); MEAN CORPUSCULAR VOLUME 89.9 fl (80.0-96.0); MONO # 0.3 10^3/uL (0.0-0.8); MONO % 3.8 % (2.0-8.0); NEUTROPHILS # 5.2 10^3/uL (1.5-8.5); NEUTROPHILS % 79.2 % (36.0-66.0); PLATELET COUNT, AUTOMATED 295 10^3/uL (150-450); RED BLOOD COUNT 4.65 10^6/uL (4.00-5.40); WHITE BLOOD COUNT 6.5 10^3/uL (4.0-10.0)
[2024-08-07 08:23] LABS: LIPASE 28 U/L (12-53)
[2024-08-07 08:25] LABS: ALBUMIN 3.9 G/DL (3.2-5.2); ALKALINE PHOSPHATASE 94 U/L (46-116); ALT/SGPT 12 U/L (7.0-40); AST/SGOT < 8 U/L (<34); BILIRUBIN,DIRECT 0.3 MG/DL (<0.4); BILIRUBIN,TOTAL 0.8 MG/DL (0.3-1.2); BLOOD UREA NITROGEN 11 MG/DL (9-23); CALCIUM LEVEL 8.9 MG/DL (8.5-10.1); CARBON DIOXIDE LEVEL 28 MMOL/L (20-31); CHLORIDE LEVEL 107 MMOL/L (98-107); CREATININE FOR GFR 0.74 MG/DL (0.55-1.30); GLOMERULAR FILTRATION RATE > 60.0 (>58); GLUCOSE, FASTING 111 MG/DL (60-100); POTASSIUM SERUM 3.9 MMOL/L (3.5-5.1); SODIUM LEVEL 140 MMOL/L (136-145); TOTAL PROTEIN 7.2 G/DL (5.7-8.2)
[2024-08-07 08:36] LABS: HCG, SERUM QUALITATIVE NEGATIVE (NEGATIVE)
[2024-08-07] MEDS: NS 1,000 ML IV ONE (08:55)
[2024-08-07] MEDS ORDERED: ISOVUE-370 76% 100ML VIAL As Ordered ONE (09:18)
[2024-08-07] MEDS ORDERED: MAALOX 30 ML SUSP *UDC PO ONE (09:55)
[2024-08-07] MEDS ORDERED: CARA1TAB6 PO (10:26)
[2024-08-07] MEDS ORDERED: PROT20TA11 PO (10:26)
[2024-08-07] MEDS: PANTOPRAZOLE 40MG TAB (PROTONIX) PO ONE (10:32)
[2024-08-07] MEDS: SUCRALFATE 1 GM TAB PO ONE (10:33)
[2024-08-07 10:42] VITALS: BP 162/84; TEMP 98.8; O2SAT 100
== END 2024-08-07 10:44 | disposition home or self-care (01) ==
LOC: M ED 05:09
DX: A04.4 Other intestinal Escherichia coli infections (principal); K29.70 Gastritis, unspecified, without bleeding; K21.9 Gastro-esophageal reflux disease without esophagitis; Z79.1 Long term (current) use of non-steroidal anti-inflammatories (NSAID)
CPT/HCPCS: 74177; 80048; 80076; 81001; 83690; 84703; 85025; 87486; 87507; 87581; 87633; 87798; 96360; 99284; Q9967

== ENCOUNTER 2024-08-14 09:18 | Day surgery (SDC) | payer OTHER ==
[~2024-08-14] VITALS: Ht 154.9 cm; Wt 60.2 kg
[~2024-08-14 09:18] MED LIST changes: +CARA1TAB6 PO; +CETI-24 PO; +DICL3GEL2 TOP; +FLUTISP; +METH4PACK PO; +NS 1,000 ML IV ONE; +PROT20TA11 PO
[2024-08-14] MEDS ORDERED: GLYCOPYRROLATE INJ 0.2 MG/ML 2 ML VIAL As Ordered ONE (11:51)
[2024-08-14] MEDS ORDERED: propofoL 200 MG/20 ML VIAL As Ordered ONE (11:51)
[2024-08-14] MEDS ORDERED: LIDOCAINE 2% 100MG/5ML SDV (FOR ANES.) As Ordered ONE (11:51)
[2024-08-14 12:38] VITALS: BP 148/92; O2SAT 100
== END 2024-08-14 12:42 | disposition home or self-care (01) ==
LOC: M OPP 09:18
PROVIDERS: ATTEND Internal Medicine Gastroenterology
DX: K57.30 Diverticulosis of large intestine without perforation or abscess without bleeding (principal); D12.8 Benign neoplasm of rectum; K58.2 Mixed irritable bowel syndrome; R13.10 Dysphagia, unspecified; K63.5 Polyp of colon; K64.8 Other hemorrhoids; K21.9 Gastro-esophageal reflux disease without esophagitis; Z90.49 Acquired absence of other specified parts of digestive tract; Z87.19 Personal history of other diseases of the digestive system; F17.290 Nicotine dependence, other tobacco product, uncomplicated; R00.2 Palpitations; Z79.899 Other long term (current) drug therapy; Z98.51 Tubal ligation status
CPT/HCPCS: 43239; 45380; 45381; 45385; 88305; J1596

== ENCOUNTER → 2024-10-01 | Outpatient (CLI) | payer OTHER ==
[~2024-10-01] MED LIST changes: -NS 1,000 ML IV ONE
[2024-10-01 14:33] LABS: HEMATOCRIT 40.8 % (36.0-47.0); HEMOGLOBIN 13.4 g/dl (12.0-15.5); MEAN CORPUSCULAR HGB CONC 32.8 g/dl (32.0-36.5); MEAN CORPUSCULAR VOLUME 91.3 fl (80.0-96.0); PLATELET COUNT, AUTOMATED 273 10^3/uL (150-450); RED BLOOD COUNT 4.47 10^6/uL (4.00-5.40)
[2024-10-01 14:38] LABS: BLOOD UREA NITROGEN 9 MG/DL (9-23); CALCIUM LEVEL 9.5 MG/DL (8.5-10.1); CARBON DIOXIDE LEVEL 32 MMOL/L (20-31); CHLORIDE LEVEL 107 MMOL/L (98-107); CREATININE FOR GFR 0.84 MG/DL (0.55-1.30); GLOMERULAR FILTRATION RATE > 60.0 (>58); GLUCOSE, FASTING 101 MG/DL (60-100); POTASSIUM SERUM 4.2 MMOL/L (3.5-5.1); SODIUM LEVEL 143 MMOL/L (136-145)
[2024-10-01 14:40] LABS: FREE T4 1.13 NG/DL (0.89-1.76); THYROID STIMULATING HORMONE 0.574 uIU/ML (0.55-4.78)
== END ==
LOC: M PLALAB 11:08
PROVIDERS: ATTEND Physician Assistant Medical
DX: R00.2 Palpitations (principal)

== ENCOUNTER → 2024-10-17 | Outpatient (REF) | payer MEDICAID, OTHER | LOC: M SFHCPLAZ 14:30 | PROVIDERS: ATTEND Nurse Practitioner Adult Health | DX: R10.2 Pelvic and perineal pain (principal) ==

== ENCOUNTER 2024-11-15 05:46 | Emergency (ER) | payer OTHER ==
[~2024-11-15] VITALS: Ht 154.9 cm; Wt 63.5 kg
[2024-11-15 05:52] VITALS: BP 142/86; TEMP 98; O2SAT 100
== END 2024-11-15 09:30 | disposition home or self-care (01) ==
LOC: M ED 05:46
DX: U07.1 COVID-19 (principal); F17.210 Nicotine dependence, cigarettes, uncomplicated; Z79.1 Long term (current) use of non-steroidal anti-inflammatories (NSAID); Z79.899 Other long term (current) drug therapy

== ENCOUNTER 2024-11-16 23:31 | Emergency (ER) | payer OTHER ==
[~2024-11-16] VITALS: Ht 154.9 cm; Wt 57.5 kg
[2024-11-17] MEDS: ONDANSETRON 4MG 2ML VIAL IV ONE (06:50)
[2024-11-17 07:19] LABS: BASO % 0.5 % (0.0-1.0); HEMATOCRIT 47.1 % (36.0-47.0); LYMPH # 0.9 10^3/uL (1.5-5.0); LYMPH % 21.8 % (24.0-44.0); MEAN CORPUSCULAR HEMOGLOBIN 30.6 pg (27.0-33.0); MEAN CORPUSCULAR VOLUME 90.1 fl (80.0-96.0); MONO # 0.3 10^3/uL (0.0-0.8); MONO % 8.4 % (2.0-8.0); NEUTROPHILS # 2.7 10^3/uL (1.5-8.5); NEUTROPHILS % 68.8 % (36.0-66.0); PLATELET COUNT, AUTOMATED 266 10^3/uL (150-450); RED BLOOD COUNT 5.23 10^6/uL (4.00-5.40)
[2024-11-17 07:38] LABS: LIPASE 29 U/L (12-53)
[2024-11-17 07:40] LABS: ALBUMIN 4.3 G/DL (3.2-5.2); ALKALINE PHOSPHATASE 103 U/L (35-104); ALT/SGPT 16 U/L (7.0-40); AST/SGOT 17 U/L (<34); BILIRUBIN,DIRECT 0.2 MG/DL (<0.4); BILIRUBIN,TOTAL 0.8 MG/DL (0.3-1.2); BLOOD UREA NITROGEN 20 MG/DL (9-23); CALCIUM LEVEL 9.8 MG/DL (8.5-10.1); CARBON DIOXIDE LEVEL 25 MMOL/L (20-31); CHLORIDE LEVEL 102 MMOL/L (98-107); CREATININE FOR GFR 0.71 MG/DL (0.55-1.30); GLOMERULAR FILTRATION RATE > 60.0 (>58); GLUCOSE, FASTING 67 MG/DL (60-100); POTASSIUM SERUM 4.6 MMOL/L (3.5-5.1); SODIUM LEVEL 139 MMOL/L (136-145); TOTAL PROTEIN 8.1 G/DL (5.7-8.2)
[2024-11-17 09:00] VITALS: BP 127/73; TEMP 98.6; O2SAT 99
== END 2024-11-17 09:28 | disposition home or self-care (01) ==
LOC: M ED 23:31
DX: U07.1 COVID-19 (principal); R11.2 Nausea with vomiting, unspecified; R19.7 Diarrhea, unspecified; K21.9 Gastro-esophageal reflux disease without esophagitis; F17.290 Nicotine dependence, other tobacco product, uncomplicated; Z79.1 Long term (current) use of non-steroidal anti-inflammatories (NSAID); Z79.899 Other long term (current) drug therapy
CPT/HCPCS: 80048; 80076; 83690; 85025; 96374; 99284; J2405

== ENCOUNTER → 2024-12-05 | Outpatient (CLI) | payer OTHER | LOC: M WHC 07:49 | PROVIDERS: ATTEND Nurse Practitioner Adult Health | DX: R10.2 Pelvic and perineal pain (principal); N85.8 Other specified noninflammatory disorders of uterus ==

== ENCOUNTER → 2024-12-06 | Outpatient (CLI) | payer OTHER ==
[2024-12-06 15:48] LABS: HEMATOCRIT 40.8 % (36.0-47.0); HEMOGLOBIN 13.6 g/dl (12.0-15.5); MEAN CORPUSCULAR HEMOGLOBIN 30.6 pg (27.0-33.0); MEAN CORPUSCULAR HGB CONC 33.3 g/dl (32.0-36.5); MEAN CORPUSCULAR VOLUME 91.7 fl (80.0-96.0); PLATELET COUNT, AUTOMATED 333 10^3/uL (150-450); RED BLOOD COUNT 4.45 10^6/uL (4.00-5.40); WHITE BLOOD COUNT 5.5 10^3/uL (4.0-10.0)
[2024-12-06 15:51] LABS: APPEARANCE, URINE CLEAR (CLEAR); BACTERIA, URINE AUTO NEGATIVE (NEGATIVE); BILIRUBIN, URINE AUTO NEGATIVE (NEGATIVE); BLOOD, URINE BLOOD NEGATIVE (NEGATIVE); COLOR, URINE YELLOW (YELLOW); GLUCOSE, URINE (UA) AUTO NEGATIVE (NEGATIVE); KETONE, URINE AUTO NEGATIVE (NEGATIVE); LEUKOCYTE ESTERASE, URINE AUTO NEGATIVE (NEGATIVE); MUCUS, URINE SMALL (NEGATIVE); NITRITE, URINE AUTO NEGATIVE (NEGATIVE); PROTEIN, URINE AUTO NEGATIVE (NEGATIVE); RBC, URINE AUTO 0 /HPF (0-3); SPECIFIC GRAVITY URINE AUTO 1.027 (1.002-1.035); SQUAMOUS EPITHELIAL CELL UR AU 0 /HPF (0-6); UROBILINOGEN, URINE AUTO 0.2 mg/dL (0.0-2.0); WBC, URINE AUTO 1 /HPF (0-3)
[2024-12-06 16:12] LABS: LIPASE 37 U/L (12-53)
[2024-12-06 16:14] LABS: ALKALINE PHOSPHATASE 101 U/L (35-104); ALT/SGPT 22 U/L (7.0-40); AST/SGOT 11 U/L (<34); BLOOD UREA NITROGEN 15 MG/DL (9-23); CALCIUM LEVEL 9.5 MG/DL (8.5-10.1); CARBON DIOXIDE LEVEL 29 MMOL/L (20-31); CHLORIDE LEVEL 107 MMOL/L (98-107); CREATININE FOR GFR 0.78 MG/DL (0.55-1.30); GLOMERULAR FILTRATION RATE > 60.0 (>58); GLUCOSE, FASTING 94 MG/DL (60-100); POTASSIUM SERUM 4.2 MMOL/L (3.5-5.1); SODIUM LEVEL 140 MMOL/L (136-145); TOTAL PROTEIN 7.5 G/DL (5.7-8.2)
== END ==
LOC: M PLALAB 11:59 → M PLAIMG 11:59
PROVIDERS: ATTEND Physician Assistant Medical
DX: R10.32 Left lower quadrant pain (principal); R11.0 Nausea

== ENCOUNTER 2024-12-14 19:56 | Emergency (ER) | payer MEDICAID, OTHER ==
[~2024-12-14] VITALS: Ht 154.9 cm; Wt 59.7 kg
[2024-12-14 20:12] VITALS: TEMP 97.3
[2024-12-14] MEDS: METOPROLOL 5 MG/5 ML VIAL IV SCH (21:50)
[2024-12-14 22:01] LABS: BASO # 0.1 10^3/uL (0.0-0.2); BASO % 0.6 % (0.0-1.0); EOS % 0.1 % (0.0-3.0); HEMATOCRIT 38.8 % (36.0-47.0); HEMOGLOBIN 13.3 g/dl (12.0-15.5); LYMPH # 1.3 10^3/uL (1.5-5.0); MEAN CORPUSCULAR HEMOGLOBIN 31.1 pg (27.0-33.0); MEAN CORPUSCULAR HGB CONC 34.3 g/dl (32.0-36.5); MEAN CORPUSCULAR VOLUME 90.7 fl (80.0-96.0); MONO # 0.4 10^3/uL (0.0-0.8); MONO % 3.5 % (2.0-8.0); NEUTROPHILS # 9.1 10^3/uL (1.5-8.5); NEUTROPHILS % 83.6 % (36.0-66.0); PLATELET COUNT, AUTOMATED 274 10^3/uL (150-450); RED BLOOD COUNT 4.28 10^6/uL (4.00-5.40); WHITE BLOOD COUNT 10.8 10^3/uL (4.0-10.0)
[2024-12-14 22:27] LABS: BLOOD UREA NITROGEN 14 MG/DL (9-23); CALCIUM LEVEL 9.1 MG/DL (8.5-10.1); CARBON DIOXIDE LEVEL 25 MMOL/L (20-31); CHLORIDE LEVEL 105 MMOL/L (98-107); CREATININE FOR GFR 0.74 MG/DL (0.55-1.30); GLOMERULAR FILTRATION RATE > 60.0 (>58); GLUCOSE, FASTING 205 MG/DL (60-100); MAGNESIUM LEVEL 1.8 MG/DL (1.8-2.4); POTASSIUM SERUM 3.4 MMOL/L (3.5-5.1); SODIUM LEVEL 141 MMOL/L (136-145)
[2024-12-14 22:31] LABS: THYROID STIMULATING HORMONE 1.566 uIU/ML (0.55-4.78)
[2024-12-14] MEDS ORDERED: ISOVUE-370 76% 100ML VIAL As Ordered ONE (22:44)
[2024-12-15 00:11] VITALS: O2SAT 97
[2024-12-15 00:15] VITALS: BP 116/69
== END 2024-12-15 00:42 | disposition home or self-care (01) ==
LOC: M ED 19:56
DX: R00.2 Palpitations (principal); R00.0 Tachycardia, unspecified; K21.9 Gastro-esophageal reflux disease without esophagitis; F17.210 Nicotine dependence, cigarettes, uncomplicated; Z79.1 Long term (current) use of non-steroidal anti-inflammatories (NSAID); Z79.899 Other long term (current) drug therapy
CPT/HCPCS: 70450; 71046; 71275; 80048; 83735; 84443; 85025; 93005; 96374; 99285; Q9967

== ENCOUNTER → 2024-12-20 | Outpatient (CLI) | payer OTHER ==
[2024-12-20 18:49] LABS: HEMOGLOBIN A1c 5.4 % (4.0-6.0)
[2024-12-20 19:04] LABS: FREE T4 1.42 NG/DL (0.89-1.76); THYROID STIMULATING HORMONE 1.351 uIU/ML (0.55-4.78)
== END ==
LOC: M PLALAB 15:56
PROVIDERS: ATTEND Nurse Practitioner Adult Health
DX: R73.9 Hyperglycemia, unspecified (principal); Z83.3 Family history of diabetes mellitus; R61 Generalized hyperhidrosis

== ENCOUNTER 2025-01-20 22:27 | Emergency (ER) | payer OTHER ==
[~2025-01-20] VITALS: Ht 154.9 cm; Wt 60.1 kg
[2025-01-20 23:11] LABS: BASO % 0.4 % (0.0-1.0); EOS % 0.2 % (0.0-3.0); HEMATOCRIT 40.8 % (36.0-47.0); HEMOGLOBIN 14.1 g/dl (12.0-15.5); LYMPH % 11.7 % (24.0-44.0); MEAN CORPUSCULAR HEMOGLOBIN 31.3 pg (27.0-33.0); MEAN CORPUSCULAR HGB CONC 34.6 g/dl (32.0-36.5); MEAN CORPUSCULAR VOLUME 90.5 fl (80.0-96.0); MONO # 0.4 10^3/uL (0.0-0.8); MONO % 4.6 % (2.0-8.0); NEUTROPHILS # 7.4 10^3/uL (1.5-8.5); NEUTROPHILS % 82.9 % (36.0-66.0); PLATELET COUNT, AUTOMATED 288 10^3/uL (150-450); RED BLOOD COUNT 4.51 10^6/uL (4.00-5.40); WHITE BLOOD COUNT 8.9 10^3/uL (4.0-10.0)
[2025-01-20 23:34] LABS: LIPASE 26 U/L (12-53)
[2025-01-20 23:36] LABS: ALBUMIN 3.9 G/DL (3.2-5.2); ALKALINE PHOSPHATASE 98 U/L (35-104); ALT/SGPT 24 U/L (7.0-40); AST/SGOT 18 U/L (<34); BILIRUBIN,DIRECT 0.5 MG/DL (<0.4); BILIRUBIN,TOTAL 1.7 MG/DL (0.3-1.2); CK-MB VALUE MASS < 1.0 NG/ML (<3.6); CPK CREATINE PHOSPHOKINASE 64 U/L (34-145); MB/CK RELATIVE INDEX 1.56 (< OR =4); TOTAL PROTEIN 7.3 G/DL (5.7-8.2)
[2025-01-21] MEDS: ONDANSETRON 4MG 2ML VIAL IV ONE (00:38)
[2025-01-21] MEDS: KETOROLAC 30 MG/ML 1ML VIAL IV ONE (00:38)
[2025-01-21 02:33] VITALS: BP 146/88; TEMP 98.3; O2SAT 98
== END 2025-01-21 02:38 | disposition home or self-care (01) ==
LOC: M ED 22:27
DX: A08.19 Acute gastroenteropathy due to other small round viruses (principal); F41.9 Anxiety disorder, unspecified; F17.290 Nicotine dependence, other tobacco product, uncomplicated; F12.10 Cannabis abuse, uncomplicated; Z79.899 Other long term (current) drug therapy
CPT/HCPCS: 80047; 80076; 82550; 82553; 83690; 84484; 85025; 87507; 93005; 96374; 99284; J1885; J2405

== ENCOUNTER → 2025-01-24 | Outpatient (CLI) | payer OTHER | LOC: M WHC 12:58 | PROVIDERS: ATTEND Physician Assistant Medical | DX: Z12.31 Encounter for screening mammogram for malignant neoplasm of breast (principal) ==

== ENCOUNTER 2025-05-04 16:27 | Emergency (ER) | payer OTHER ==
[~2025-05-04] VITALS: Ht 160 cm; Wt 64.8 kg
[2025-05-04] MEDS ORDERED: ESCITALOPRAM (16:38)
[2025-05-04] MEDS ORDERED: HYDR-3363 (16:38)
[2025-05-04 18:47] LABS: BASO % 0.5 % (0.0-1.0); HEMOGLOBIN 13.2 g/dl (12.0-15.5); LYMPH % 12.6 % (24.0-44.0); MEAN CORPUSCULAR HEMOGLOBIN 30.8 pg (27.0-33.0); MEAN CORPUSCULAR HGB CONC 33.8 g/dl (32.0-36.5); MEAN CORPUSCULAR VOLUME 91.1 fl (80.0-96.0); MONO # 0.5 10^3/uL (0.0-0.8); MONO % 5.5 % (2.0-8.0); NEUTROPHILS # 6.7 10^3/uL (1.5-8.5); NEUTROPHILS % 81.2 % (36.0-66.0); PLATELET COUNT, AUTOMATED 273 10^3/uL (150-450); RED BLOOD COUNT 4.28 10^6/uL (4.00-5.40); WHITE BLOOD COUNT 8.2 10^3/uL (4.0-10.0)
[2025-05-04 19:21] LABS: CK-MB VALUE MASS 4.5 NG/ML (<3.6)
[2025-05-04 19:24] LABS: ALBUMIN 3.9 G/DL (3.2-5.2); ALKALINE PHOSPHATASE 98 U/L (35-104); ALT/SGPT 19 U/L (7.0-40); AST/SGOT 19 U/L (<34); BILIRUBIN,TOTAL 0.8 MG/DL (0.3-1.2); BLOOD UREA NITROGEN 10 MG/DL (9-23); CALCIUM LEVEL 8.9 MG/DL (8.5-10.1); CARBON DIOXIDE LEVEL 26 MMOL/L (20-31); CHLORIDE LEVEL 107 MMOL/L (98-107); CREATININE FOR GFR 0.74 MG/DL (0.55-1.30); GLOMERULAR FILTRATION RATE > 90.0 (>51); GLUCOSE, FASTING 104 MG/DL (60-100); MAGNESIUM LEVEL 1.9 MG/DL (1.8-2.4); POTASSIUM SERUM 3.4 MMOL/L (3.5-5.1); SODIUM LEVEL 143 MMOL/L (136-145); TOTAL PROTEIN 6.8 G/DL (5.7-8.2)
[2025-05-04 19:25] LABS: FREE T4 1.35 NG/DL (0.89-1.76)
[2025-05-04 19:26] LABS: THYROID STIMULATING HORMONE 1.708 uIU/ML (0.55-4.78)
[2025-05-04 19:29] LABS: CPK CREATINE PHOSPHOKINASE 187 U/L (34-145)
[2025-05-04 20:28] VITALS: BP 156/81; TEMP 97.9; O2SAT 99
== END 2025-05-04 20:30 | disposition home or self-care (01) ==
LOC: M ED 16:27
DX: R00.0 Tachycardia, unspecified (principal); T40.715A Adverse effect of cannabis, initial encounter; F17.210 Nicotine dependence, cigarettes, uncomplicated; Z79.899 Other long term (current) drug therapy

== ENCOUNTER 2025-07-24 19:49 | Emergency (ER) | payer MEDICAID, OTHER ==
[~2025-07-24] VITALS: Ht 154.9 cm; Wt 67.3 kg
[~2025-07-24 19:49] MED LIST changes: -PANT40TA29 PO; -POTA-141 PO; -SUCR1SS PO
[2025-07-24 21:07] LABS: BASO # 0.0 10^3/uL (0.0-0.2); BASO % 0.3 % (0.0-1.0); EOS # 0.0 10^3/uL (0.0-0.5); EOS % 0.2 % (0.0-3.0); LYMPH # 0.9 10^3/uL (1.5-5.0); LYMPH % 8.4 % (24.0-44.0); MONO # 0.4 10^3/uL (0.0-0.8); MONO % 3.8 % (2.0-8.0); NEUTROPHILS # 9.0 10^3/uL (1.5-8.5); NEUTROPHILS % 87.1 % (36.0-66.0); PLATELET COUNT, AUTOMATED 265 10^3/uL (150-450)
[2025-07-24 21:40] LABS: ALT/SGPT 17.0 U/L (7.0-40); AST/SGOT 17.0 U/L (<34)
[2025-07-24] MEDS: NS (Normal Saline) 0.9% 1,000 ML IV ONE (22:46)
[2025-07-24] MEDS: SUCRALFATE SUSP 1GM/10ML UD PO ONE (23:50)
[2025-07-24] MEDS: ONDANSETRON 4MG 2ML VIAL IV ONE (23:50)
[2025-07-24] MEDS: MAALOX 30 ML SUSP *UDC PO ONE (23:50)
[2025-07-24] MEDS: LIDOCAINE VISCOUS 2% SOLN 15 ML UDC PO ONE (23:50)
[2025-07-25] MEDS ORDERED: ISOVUE-370 76% 100 ML VIAL As Ordered ONE (00:09)
[2025-07-25] MEDS ORDERED: POTA-141 PO (01:40)
[2025-07-25] MEDS ORDERED: SUCR1SS PO (01:46)
[2025-07-25] MEDS ORDERED: PANT40TA29 PO (01:46)
[2025-07-25] MEDS: POTASSIUM CHLORIDE 10MEQ SR TABLET PO ONE (01:53)
[2025-07-25 02:00] VITALS: BP 132/63; TEMP 98.4; O2SAT 99
== END 2025-07-25 02:01 | disposition home or self-care (01) ==
LOC: M ED 19:49
DX: A08.4 Viral intestinal infection, unspecified (principal); Z79.899 Other long term (current) drug therapy
CPT/HCPCS: 74177; 80047; 80076; 83690; 85025; 87507; 96374; 99284; J2405; Q9967

== ENCOUNTER → 2025-07-24 | Outpatient (REF) | payer OTHER, MEDICAID ==
[~2025-07-24] MED LIST changes: +DICL3GEL13 TOP; -DICL3GEL2 TOP; +ESCITALOPRAM; +HYDR-3363; +PANT40TA29 PO; +POTA-141 PO; +SUCR1SS PO
== END ==
LOC: M LAB REF 14:27
PROVIDERS: ATTEND Nurse Practitioner Family
DX: R19.7 Diarrhea, unspecified (principal); Z20.828 Contact with and (suspected) exposure to other viral communicable diseases; R11.2 Nausea with vomiting, unspecified

== ENCOUNTER → 2025-09-12 | Outpatient (CLI) | payer OTHER ==
[~2025-09-12] MED LIST changes: +PANT40TA29 PO; +POTA-141 PO; +SUCR1SS PO
[2025-09-12 15:16] LABS: PLATELET COUNT, AUTOMATED 339 10^3/uL (150-450)
[2025-09-12 15:23] LABS: ALT/SGPT 18 U/L (7.0-40); AST/SGOT 18 U/L (<34); CALCIUM LEVEL 9.3 MG/DL (8.5-10.1); CARBON DIOXIDE LEVEL 30 MMOL/L (20-31); CHLORIDE LEVEL 102 MMOL/L (98-107); CREATININE FOR GFR 0.77 MG/DL (0.55-1.30); GLOMERULAR FILTRATION RATE > 90.0 (>51); POTASSIUM SERUM 4.5 MMOL/L (3.5-5.1); SODIUM LEVEL 140 MMOL/L (136-145)
[2025-09-12 15:25] LABS: FREE T4 1.09 NG/DL (0.89-1.76)
[2025-09-12 15:30] LABS: ESTIMATED AVERAGE GLUCOSE 111.0 MG/DL (60-110)
[2025-09-21 18:13] LABS: ALPHA 2-MACROGLOBULINS,QN 232 mg/dL (106-279); ALT (SGPT) P5P 7 U/L (6-29); APOLIPOPROTEIN A-1 203 mg/dL (101-198); FIBROSIS SCORE 0.10; FIBROSIS STAGE NO FIBROSIS (F0); GGT 12 U/L (3-70); HAPTOGLOBIN 166 mg/dL (43-212); NECROINFLAM ACT GRADE NO ACTIVITY (A0); NECROINFLAM ACT SCORE 0.01
== END ==
LOC: M PLALAB 11:25
PROVIDERS: ATTEND Nurse Practitioner Adult Health
DX: Z00.00 Encounter for general adult medical examination without abnormal findings (principal); R00.2 Palpitations; K76.0 Fatty (change of) liver, not elsewhere classified

== ENCOUNTER → 2025-09-26 | Outpatient (CLI) | payer OTHER | LOC: M WHC 11:43 | PROVIDERS: ATTEND Nurse Practitioner Adult Health | DX: R10.20 Pelvic and perineal pain unspecified side (principal) ==